=== PATIENT | male | born 1940 | race Native Hawaiian/Other Pacific Islander ===

== ENCOUNTER 2017-12-10 09:39 | Inpatient (IN) ==
--- NOTE | 2017-12-10 10:06 | ED ---
HPI General Chief complaint: Weakness Stated complaint: Weakness Time Seen by Provider: 12/10/17 09:42 Source: patient Mode of arrival: ambulatory Limitations: no limitations History of Present Illness HPI Narrative: Patient was sent from assisted living by Dr. HUMPHREY for increased lower extremity weakness and inability to ambulate. They had been trying to monitor patient outpatient until they got clearance from for lumbar spine surgery. MRI of lumbar spine shows severe spinal stenosis, Dr. Merritt would like to do surgery emergently tomorrow morning. MD Complaint: Reports tingling Onset (ago): week(s) (2) Duration: progressively worsening Location: Reports LLE and RLE Migration: Reports distal Severity: severe Relieving factors: none Exacerbating factors: none Related Data Home Medications Medication Instructions Recorded Confirmed amiodarone 200 mg PO DAILY 12/10/17 12/10/17 atorvastatin 20 mg PO DAILY 12/10/17 12/10/17 budesonide-formoterol [Symbicort] 2 puff INHALATION BID 12/10/17 12/10/17 bumetanide 0.5 mg PO DAILY 12/10/17 12/10/17 insulin lispro [Humalog KwikPen 20 unit SUBCUT BID 12/10/17 12/10/17 Insulin] melatonin 3 mg PO HS PRN 12/10/17 12/10/17 metformin 500 mg PO BID 12/10/17 12/10/17 metoprolol tartrate 50 mg PO BID 12/10/17 12/10/17 mirtazapine 15 mg PO DAILY 12/10/17 12/10/17 nitroglycerin [Nitrostat] 0.4 mg SUBLINGUAL Q5-15M PRN 12/10/17 12/10/17 omeprazole 20 mg PO DAILY 12/10/17 12/10/17 orphenadrine citrate 100 mg PO BID 12/10/17 12/10/17 oxycodone 10 mg PO Q12H 12/10/17 12/10/17 oxycodone-acetaminophen 1 tab PO Q4HR PRN 12/10/17 12/10/17 prednisone 15 mg PO DAILY 12/10/17 12/10/17 sacubitril-valsartan [Entresto] 1 tab PO BID 12/10/17 12/10/17 terbinafine HCl 1 applic TOPICAL BID 12/10/17 12/10/17 Allergies Allergy/AdvReac Type Severity Reaction Status Date / Time Sulfa (Sulfonamide Allergy Mild Burning Verified 12/10/17 09:46 Antibiotics) aspirin Allergy Bleeding Verified 12/10/17 10:22 Review of Systems ROS: all other systems reviewed are negative [facility] Medical History Medical History A-fib (Acute) CHF (congestive heart failure) (Acute) COPD (chronic obstructive pulmonary disease) (Acute) Depression (Acute) Diabetes (Acute) GERD (gastroesophageal reflux disease) (Acute) Hyperkalemia (Acute) Hyperlipemia (Acute) Hypertension (Acute) Muscle spasm (Acute) UTI (urinary tract infection) (Acute) Social History Social History Substance History: No History of Abuse Second Hand Smoke Exposure: No Smoking Status: Former smoker How Often Do You Have a Drink Containing Alcohol: Never Recent Travel in [facility] within the Last 8 Weeks: No Recent Out of Country Travel within the Last 8 Weeks: No Immunization History Tetanus Immunization: Unsure Exam HENPA Head: normocephalic and atraumatic Nose: no nasal discharge and no epistaxis Mouth: moist mucous membranes Eyes Sclera: normal sclerae Pupils: PERRL Neck Neck: trachea midline and no JVD Resp Effort & Inspection: no use of accessory muscles Auscultation: clear to auscultation bilaterally Cardio Rate: regular rate Rhythm: regular rhythm Heart Sounds: no murmurs GI Inspection: non-distended Palpation: soft, no hepatosplenomegaly and nontender Skin General: dry skin (warm) Lesions: no lesions Other: Posterior lower lumbar spine superficially shows no signs of decubitus ulcer formations. Patient's bilateral upper extremities have a group of small 1 x 2 cm circular erythematous scaly rashes Neuro General: alert and awake Cranial Nerves: other Speech: speech normal Motor: other (Or extremity weakness to movement. ) Sensory Exam: no sensory deficits noted Extrem General: normal to inspection, no clubbing, no cyanosis and no edema Psych Mood: congruent mood Affect: normal affect Judgment: judgment good Course Initial Documented Vital Signs Pulse Rate 72 12/10/17 09:50 Respiratory Rate 21 12/10/17 09:50 Blood Pressure 152/69 H 12/10/17 09:50 Pulse Oximetry 96 12/10/17 09:50 Last Documented Vital Signs Temperature 97.7 F 12/10/17 09:55 Pulse Rate 72 12/10/17 09:50 Respiratory Rate 21 12/10/17 09:50 Blood Pressure 152/69 H 12/10/17 09:50 Pulse Oximetry 96 12/10/17 09:50 Medical Decision Making REBECCA Attestation REBECCA supervised visit: Yes Attestation: The history, exam, and medical decision-making in the associated mid-level provider note were completed with my assistance. I reviewed and agree with the findings presented. I attest that I had a [id number] encounter with the patient on the same day, and personally performed and documented my assessment and findings in the medical record. *My assessment and Findings: 77-year-old male with spinal stenosis and worsening lower extremity with surgery for admission for evaluation and surgical treatment. Multiple medical comorbidities. Will need evaluation for an specialty clearance. Plan on admission to medicine. MDM Narrative Medical decision making narrative: She is being sent from assisted living facility by Dr. Merritt for progressive spinal cord compression of his lumbar spine due to severe spinal stenosis. Dr. 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 Patient's labs and chest x-ray along with EKG look normal Patient admitted to medicine Medical Screen Exam Complete: Yes Emergency Medical Condition: Yes Lab Data Lab results reviewed: Yes I reviewed the patient's lab results. Result diagrams: 12/10/17 10:12/10/17 10:04 Lab Results 12/10/17 12/10/17 12/10/17 Range/Units 10:04 10:04 10:04 WBC 9.7 (4.0-11.0) th/mm3 RBC 3.98 L (4.50-5.90) mil/mm3 Hgb 10.8 L (13.0-17.0) gm/dL Hct 33.6 L (39.0-51.0) % MCV 84.4 (80.0-100.0) fL MCH 27.0 (27.0-34.0) pg MCHC 32.0 (32.0-36.0) % RDW 22.1 H (11.6-17.2) % Plt Count 143 L (150-450) th/mm3 MPV 8.0 (7.0-11.0) fL Neut % (Auto) 68.1 (16.0-70.0) % Lymph % (Auto) 23.2 (9.0-44.0) % [place] % (Auto) 7.6 (0.0-8.0) % Eos % (Auto) 0.5 (0.0-4.0) % Baso % (Auto) 0.6 (0.0-2.0) % Neut # (Auto) 6.6 (1.8-7.7) th/mm3 Lymph # (Auto) 2.2 (1.0-4.8) th/mm3 [place] # (Auto) 0.7 (0.0-0.9) th/mm3 Eos # (Auto) 0.0 (0.0-0.4) th/mm3 Baso # (Auto) 0.1 (0.0-0.2) th/mm3 WBC Differential . Differential Comment Auto diff final PT 9.5 L (9.8-11.6) sec INR 0.9 Ratio APTT (24.3-30.1) sec Sodium 135 L (136-145) meq/L Potassium 4.5 (3.5-5.1) meq/L Chloride 95 L (98-107) meq/L Carbon Dioxide 31.4 (21.0-32.0) meq/L Anion Gap 9 (5-15) meq/L BUN 39 H (7-18) mg/dL Creatinine 1.02 (0.60-1.30) mg/dL Estimated GFR 71 L (>89) mL/min Random Glucose 217 H (74-106) mg/dL Calcium 8.4 L (8.5-10.1) mg/dL Total Bilirubin 0.3 (0.2-1.0) mg/dL AST 45 H (15-37) U/L ALT 53 (12-78) U/L Alkaline Phosphatase 113 (45-117) U/L Total Protein 6.0 L (6.4-8.2) g/dL Albumin 2.6 L (3.4-5.0) g/dL 12/10/18 Range/Units 10:04 WBC (4.0-11.0) th/mm3 RBC (4.50-5.90) mil/mm3 Hgb (13.0-17.0) gm/dL Hct (39.0-51.0) % MCV (80.0-100.0) fL MCH (27.0-34.0) pg MCHC (32.0-36.0) % RDW (11.6-17.2) % Plt Count (150-450) th/mm3 MPV (7.0-11.0) fL Neut % (Auto) (16.0-70.0) % Lymph % (Auto) (9.0-44.0) % [place] % (Auto) (0.0-8.0) % Eos % (Auto) (0.0-4.0) % Baso % (Auto) (0.0-2.0) % Neut # (Auto) (1.8-7.7) th/mm3 Lymph # (Auto) (1.0-4.8) th/mm3 [place] # (Auto) (0.0-0.9) th/mm3 Eos # (Auto) (0.0-0.4) th/mm3 Baso # (Auto) (0.0-0.2) th/mm3 WBC Differential Differential Comment PT (9.8-11.6) sec INR Ratio APTT 18.6 L (24.3-30.1) sec Sodium (136-145) meq/L Potassium (3.5-5.1) meq/L Chloride (98-107) meq/L Carbon Dioxide (21.0-32.0) meq/L Anion Gap (5-15) meq/L BUN (7-18) mg/dL Creatinine (0.60-1.30) mg/dL Estimated GFR (>89) mL/min Random Glucose (74-106) mg/dL Calcium (8.5-10.1) mg/dL Total Bilirubin (0.2-1.0) mg/dL AST (15-37) U/L ALT (12-78) U/L Alkaline Phosphatase (45-117) U/L Total Protein (6.4-8.2) g/dL Albumin (3.4-5.0) g/dL Imaging Data Attestation: I personally reviewed and interpreted this imaging study as follows : Radiologist's impression: Chest X-Ray 10/30/18 09:54 CONCLUSION: Minimal bibasilar subsegmental atelectasis. No infiltrate. ECG Data EKG Prior to Arrival: No Attestation: I personally reviewed and interpreted this ECG as follows: ( Regular rate and rhythm with no ST changes rate 70 bpm) Discharge Plan Discharge Disposition Patient Disposition: 30 Still Patient Discharge Condition Condition: Stable Discharge Details Diagnosis: Spinal stenosis of lumbar region, Unable to ambulate Physicians Team ED Provider: Frederic Kiser ED Midlevel Provider: Gardenia Neal Primary Care Provider: UNKNOWN, Attending Provider: Andreia Rosen Status ED Status: Admitted Patient
[2017-12-10 10:23] LABS: INR 0.9 Ratio; Prothrombin Time 9.5 sec (9.8-11.6)
--- NOTE | 2017-12-10 10:27 | XR ---
EXAM DATE: 12/10/2017 10:23 AM EDT AGE/SEX: 77 years / Male INDICATIONS: Chest pain. CLINICAL DATA: This is the patient's initial encounter. Patient reports that signs and symptoms have been present for 1 day and indicates a pain score of 0/10. MEDICAL/SURGICAL HISTORY: None. None. COMPARISON: [facility], XR CHEST PA AND LAT, 12/31/2014. . FINDINGS: A single AP view of the chest demonstrates minimal bibasilar subsegmental atelectasis without evidenc e of mass, infiltrate or effusion. The cardiomediastinal contours are unremarkable. Osseous structu res are intact. CONCLUSION: Minimal bibasilar subsegmental atelectasis. No infiltrate. Electronically signed by: Yung Jeronimo MD 12/10/2017 10:25 AM EDT
[2017-12-10 10:28] LABS: Alanine Aminotransferase 53 U/L (12-78); Albumin 2.6 g/dL (3.4-5.0); Anion Gap 9 meq/L (5-15); Aspartate Aminotransferase 45 U/L (15-37); Baso # (Auto) 0.1 th/mm3 (0.0-0.2); Baso % (Auto) 0.6 % (0.0-2.0); Blood Urea Nitrogen 39 mg/dL (7-18); Calcium 8.4 mg/dL (8.5-10.1); Carbon Dioxide 31.4 meq/L (21.0-32.0); Chloride 95 meq/L (98-107); Eos % (Auto) 0.5 % (0.0-4.0); Glomerular Filtration Rate 71 mL/min (>89); Glucose,Random 217 mg/dL (74-106); Hematocrit 33.6 % (39.0-51.0); Hemoglobin 10.8 gm/dL (13.0-17.0); Lymph # (Auto) 2.2 th/mm3 (1.0-4.8); Lymph % (Auto) 23.2 % (9.0-44.0); Mean Corpuscular Volume 84.4 fL (80.0-100.0); Mono # (Auto) 0.7 th/mm3 (0.0-0.9); Mono % (Auto) 7.6 % (0.0-8.0); Neut # (Auto) 6.6 th/mm3 (1.8-7.7); Neut % (Auto) 68.1 % (16.0-70.0); Platelet Count 143 th/mm3 (150-450); Potassium 4.5 meq/L (3.5-5.1); Red Blood Count 3.98 mil/mm3 (4.50-5.90); Red Cell Distribution Width 22.1 % (11.6-17.2); Sodium 135 meq/L (136-145); White Blood Count 9.7 th/mm3 (4.0-11.0)
[2017-12-10 10:30] LABS: Alkaline Phosphatase 113 U/L (45-117)
--- NOTE | 2017-12-10 10:41 | P.HPFP ---
History of Present Illness Primary Care Physician: UNKNOWN <Arturo Marcus - 12/10/17 17:44> UNKNOWN <SilasMariam Main 12/10/17 10:41> History of Present Illness: 77-year-old male with history of A.fib, hypertension, type 2 diabetes, COPD, CHF , rheumatoid arthritis, severe spinal stenosis sent to the ED from assisted living by for worsening lower extremity weakness and inability to ambulate. and [id number] at bedside. Most of the history provided by . Patient initially started having back pain about 3-4 months ago. Family thought it was due to arthritis. However, patient's legs started becoming weak. Reports that patient was hospitalized about 1 month ago at another hospital. MRI demonstrated severe spinal stenosis. states that they were not ready to undergo surgery at that time and wanted to try therapy. Patient was in therapy at [facility] for at least 2 weeks. Reports that patient was not improving with therapy and now would like to consider surgery. Denies incontinence, difficulty with urination/ defecation, saddle anesthesia, nausea vomiting, chest pain, shortness of breath, and abdominal pain. PMH: A.fib, COPD, HTN, T2DM, CHF, RA, PSH: Bilateral knee replacement 2004. Allergies: Aspirin induces asthma attack, sulfides FH: Mom passed at 74 from [place], Father passed 75 from lung disease secondary to smoking, 2 kids healthy. Social: Lives at [facility] never smoking, never drinker. 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 Code: Full Code PCP, Dr. Craig <Mariam Rosen 12/10/17 16:53> - Diagnosis (1) Spinal stenosis of lumbar region (2) Diabetes (3) A-fib (4) HTN (hypertension) (5) Hyperlipidemia (6) COPD (chronic obstructive pulmonary disease) (7) GERD (gastroesophageal reflux disease) (8) Nutrition, metabolism, and development symptoms <Arturo Macrus 12/10/17 17:44> (1) Spinal stenosis of lumbar region (2) Diabetes (3) A-fib (4) HTN (hypertension) (5) Hyperlipidemia (6) COPD (chronic obstructive pulmonary disease) (7) GERD (gastroesophageal reflux disease) (8) Nutrition, metabolism, and development symptoms <Mariam Rosen 12/10/17 16:54> Inpatient Certification: I certify that the inpatient services were ordered in accordance with Medicare regulations governing the order. This includes certification that hospital inpatient services are reasonable and necessary and in the case of services not specified as inpatient-only under 42 CFR 419.22(n), that they are appropriately provided as inpatient services in accordance to with the 2-midnight benchmark under 43 CFR 412.3(e) <Arturo Marcus 12/10/17 17:44> Review of Systems Constitutional: Denies fever(s), Denies weight loss <VanMaryn Main 16:40> Eyes: Denies change in vision <VanMaryn Main 12/10/17 16:40> Ears, Nose, Mouth, and Throat: Reports abnormal hearing, Denies nasal congestion , Denies sore throat <VanMaryn Main 12/10/17 16:40> Cardiovascular: Denies chest pain <VanMariam Main 12/10/17 16:40> Respiratory: Denies shortness of breath <VanMaryn Main 12/10/17 16:40> Gastrointestinal: Denies abdominal pain, Denies nausea, Denies vomiting <VanMaryn Main 12/10/17 16:40> Genitourinary: Denies difficulty urinating <VanMaryn Main 12/10/17 16:40> Musculoskeletal: Reports muscle weakness <VanMaryn Main 12/10/17 16:40> Skin/Breast: Denies rash <VanMariam Main 12/10/17 16:40> Neurologic: Reports weakness <VanMaryn Main 12/10/17 16:40> PMFSH - History History Provided By: Patient, Medical Record <Mariam Rosen Main 12/10/17 10: 41> - Medical History Medical History: Medical History (Last Reviewed 12/10/17 @ 11:41 by Corinne Alvarez) A-fib CHF (congestive heart failure) COPD (chronic obstructive pulmonary disease) Depression Diabetes GERD (gastroesophageal reflux disease) Hyperkalemia Hyperlipemia Hypertension Muscle spasm UTI (urinary tract infection) <Arturo Marcus 12/10/17 17:44> Medical History (Last Reviewed 12/10/17 @ 11:41 by Corinne Alvarez) A-fib CHF (congestive heart failure) COPD (chronic obstructive pulmonary disease) Depression Diabetes GERD (gastroesophageal reflux disease) Hyperkalemia Hyperlipemia Hypertension Muscle spasm UTI (urinary tract infection) <Mariam Rosen T - 12/10/17 14:27> - Surgical History Surgical History: Surgical History (Last Updated 12/10/17 @ 16:39 by Mariam Rosen MD, R2) History of bilateral knee replacement <Arturo Marcus - 12/10/17 17:44> Surgical History (Last Updated 12/10/17 @ 16:39 by Mariam Rosen MD, R2) History of bilateral knee replacement <Mariam Rosen - 12/10/17 16:40> - Family History Family History: Family History (Last Updated 12/10/17 @ 16:39 by Mariam Rosen MD, R2) Mother Heart attack <Arturo Marcus - 12/10/17 17:44> Family History (Last Updated 12/10/17 @ 16:39 by Mariam Rosen MD, R2) Mother Heart attack <Mariam Rosen - 12/10/17 16:40> - Social History I have reviewed the patient's Social History: Yes <Mariam Rosen - 16:40> - Tobacco History Second Hand Smoke Exposure: No <Mariam Rosen - 12/10/17 10:41> Tobacco Use In Past 30 Days: No <Mariam Rosen T - 12/10/17 10:41> Smoking Status: Never smoker <Mariam Rosen T - 12/10/17 16:40> - Alcohol History How Often Do You Have a Drink Containing Alcohol: Never <Mariam Rosen T - 10:41> - Substance Use History Substance History: No History of Abuse <Mariam Rosen - 12/10/17 10:41> - Travel History Recent Travel in the [facility] Within the Last 8 Weeks: No <Mariam Rosen - 12/10 10:41> Recent Travel Out of the Country Within the Last 8 Weeks: No <Mariam Rosen - 12/10/17 10:41> - Immunization History Tetanus Immunization: Unsure <SilasMariam Etelvina T - 12/10/17 10:41> Medications and Allergies Allergies Allergy/AdvReac Type Severity Reaction Status Date / Time Sulfa (Sulfonamide Allergy Mild Burning Verified 12/10/17 09:46 Antibiotics) aspirin Allergy Bleeding Verified 12/10/17 10:22 <Arturo Marcus - 12/10/17 17:44> Home Medications Medication Instructions Recorded Confirmed Type amiodarone 200 mg PO DAILY 12/10/17 12/10/17 History atorvastatin 20 mg PO DAILY 12/10/17 12/10/17 History budesonide-formoterol [Symbicort] 2 puff INHALATION BID 12/10/17 12/10/17 History bumetanide 0.5 mg PO DAILY 12/10/17 12/10/17 History insulin lispro [Humalog KwikPen 20 unit SUBCUT BID 12/10/17 12/10/17 History Insulin] melatonin 3 mg PO HS PRN 12/10/17 12/10/17 History metformin 500 mg PO BID 12/10/17 12/10/17 History metoprolol tartrate 50 mg PO BID 12/10/17 12/10/17 History mirtazapine 15 mg PO DAILY 12/10/17 12/10/17 History nitroglycerin [Nitrostat] 0.4 mg SUBLINGUAL Q5-15M PRN 12/10/17 12/10/17 History omeprazole 20 mg PO DAILY 12/10/17 12/10/17 History orphenadrine citrate 100 mg PO BID 12/10/17 12/10/17 History oxycodone 10 mg PO Q12H 12/10/17 12/10/17 History oxycodone-acetaminophen 1 tab PO Q4HR PRN 12/10/17 12/10/17 History prednisone 15 mg PO DAILY 12/10/17 12/10/17 History sacubitril-valsartan [Entresto] 1 tab PO BID 12/10/17 12/10/17 History terbinafine HCl 1 applic TOPICAL BID 12/10/17 12/10/17 History <Arturo Marcus - 12/10/17 17:44> Active Medications: Active Medications Amiodarone HCl (Cordarone) 200 mg PO DAILY [facility] Atorvastatin Calcium (Lipitor) 20 mg PO DAILY [facility] Budesonide/Formoterol Fumarate (Symbicort 80/4.5 Mcg Inh) 2 puff INH BID [facility] Bumetanide (Bumex) 0.5 mg PO DAILY [facility] Dextrose (D50w Vial) 50 ml IV.PUSH UNSCH PRN PRN Reason: PER HYPOGLYCEMIA PROTOCOL Glucagon (Glucagon Inj) 1 mg OTHER PRN PRN PRN Reason: for Hypoglycemia Protocol Insulin Aspart (Novolog Insulin Correctional Sugar Inj) 0 unit SQ ACHS [facility]; Protocol Last Admin: 12/10/17 17:15 Dose: 3 unit Melatonin (Melatonin) 5 mg PO HS PRN PRN Reason: INSOMNIA Metoprolol Tartrate (Lopressor) 50 mg PO BID [facility] Mirtazapine (Remeron) 15 mg PO DAILY [facility] Nitroglycerin (Nitrostat Sl (Override)) 0.4 mg SL Q5M PRN PRN Reason: Chest Pain Orphenadrine Citrate (Norflex Cr) 100 mg PO BID [facility] Oxycodone HCl (Oxycontin Cr) 10 mg PO Q12H [facility] Oxycodone/Acetaminophen (Percocet 5/325 Mg) 1 tab PO Q4HR PRN PRN Reason: PAIN 1-10 Last Admin: 12/10/17 17:14 Dose: 1 tab Pantoprazole Sodium (Protonix) 20 mg PO DAILY [facility] Patient Own Medicationterbinafin e Hcl [Terbinafine Hcl] 1%Cream 0 each TOPICAL BID [facility] Prednisone (Deltasone) 15 mg PO DAILY [facility] Sacubitril/Valsartan (Entresto 24 Mg/26 Mg Tablet) 1 tab PO BID [facility] <Arturo Marcus L - 12/10/17 17:44> Exam Vital signs: Vital Signs 12/10/17 09:50 12/10/17 09:55 12/10/17 12:00 Temperature 97.7 F 98.3 F Pulse Rate 72 63 Respiratory Rate 21 18 Blood Pressure 152/69 H 145/69 H Pulse Oximetry 96 99 12/10/17 16:45 Temperature Pulse Rate Respiratory Rate Blood Pressure Pulse Oximetry 95 Intake & Output 12/09/17 12/10/17 12/10/17 18:59 06:59 18:59 Intake Total 240 / 240 Balance 240 / 240 Weight 60 kg Intake: Oral 240 / 240 Other: Date of Last Bowel Movement 12/10/17 Weight On Admission 60 kg <Arturo Marcus L - 12/10/17 17:44> Vital Signs 12/10/17 09:50 12/10/17 09:55 Temperature 97.7 F Pulse Rate 72 Respiratory Rate 21 Blood Pressure 152/69 H Pulse Oximetry 96 Intake & Output 12/09/17 12/10/17 12/10/17 18:59 06:59 18:59 Weight 60.781 kg <Aayush Rosenyen Main T - 12/10/17 10:41> Narrative: General: In no acute distress HEENT: PERRLA, EOMI, throat clear, no lymphadenopathy Cardio: Regular rate and rhythm, no murmurs rubs or gallops Pulmonary: Clear to auscultation bilaterally, no wheezes or crackles Abdomen: Soft, nontender, nondistended, positive bowel sounds, no rebound, no guarding Extremities: 2 out of 5 strength in lower extremities, 2+ pedal pulses, sensation intact, 1+ pitting edema bilaterally Neuro: Alert and oriented x3 <Mariam Rosen T - 12/10/17 16:53> Results - Labs Result diagrams: 12/10/17 10:04 12/10/17 10:04 <Arturo Marcus L - 12/10/17 17:44> Abnormal lab results 12/10/17 12/10/17 12/10/17 Range/Units 10:04 10:04 10:04 RBC 3.98 L (4.50-5.90) mil/mm3 Hgb 10.8 L (13.0-17.0) gm/dL Hct 33.6 L (39.0-51.0) % RDW 22.1 H (11.6-17.2) % Plt Count 143 L (150-450) th/mm3 PT 9.5 L (9.8-11.6) sec APTT (24.3-30.1) sec Sodium 135 L (136-145) meq/L Chloride 95 L (98-107) meq/L BUN 39 H (7-18) mg/dL Estimated GFR 71 L (>89) mL/min POC Glucose (68-110) mg/dl Random Glucose 217 H (74-106) mg/dL Calcium 8.4 L (8.5-10.1) mg/dL AST 45 H (15-37) U/L Total Protein 6.0 L (6.4-8.2) g/dL Albumin 2.6 L (3.4-5.0) g/dL 12/10/17 12/10/17 Range/Units 10:04 16:59 RBC (4.50-5.90) mil/mm3 Hgb (13.0-17.0) gm/dL Hct (39.0-51.0) % RDW (11.6-17.2) % Plt Count (150-450) th/mm3 PT (9.8-11.6) sec APTT 18.6 L (24.3-30.1) sec Sodium (136-145) meq/L Chloride (98-107) meq/L BUN (7-18) mg/dL Estimated GFR (>89) mL/min POC Glucose 245 H (68-110) mg/dl Random Glucose (74-106) mg/dL Calcium (8.5-10.1) mg/dL AST (15-37) U/L Total Protein (6.4-8.2) g/dL Albumin (3.4-5.0) g/dL Short CBC 12/10/17 Range/Units 10:04 WBC 9.7 (4.0-11.0) th/mm3 Hgb 10.8 L (13.0-17.0) gm/dL Hct 33.6 L (39.0-51.0) % Plt Count 143 L (150-450) th/mm3 BMP 12/10/17 10:04 Sodium 135 L Potassium 4.5 Chloride 95 L Carbon Dioxide 31.4 BUN 39 H Creatinine 1.02 Calcium 8.4 L Liver Function 12/10/17 Range/Units 10:04 Total Bilirubin 0.3 (0.2-1.0) mg/dL AST 45 H (15-37) U/L ALT 53 (12-78) U/L Alkaline Phosphatase 113 (45-117) U/L Albumin 2.6 L (3.4-5.0) g/dL <Young,Arturo L - 12/10/17 17:44> Abnormal lab results 12/10/17 12/10/17 12/10/17 Range/Units 10:04 10:04 10:04 RBC 3.98 L (4.50-5.90) mil/mm3 Hgb 10.8 L (13.0-17.0) gm/dL Hct 33.6 L (39.0-51.0) % RDW 22.1 H (11.6-17.2) % Plt Count 143 L (150-450) th/mm3 PT 9.5 L (9.8-11.6) sec APTT (24.3-30.1) sec Sodium 135 L (136-145) meq/L Chloride 95 L (98-107) meq/L BUN 39 H (7-18) mg/dL Estimated GFR 71 L (>89) mL/min Random Glucose 217 H (74-106) mg/dL Calcium 8.4 L (8.5-10.1) mg/dL AST 45 H (15-37) U/L Total Protein 6.0 L (6.4-8.2) g/dL Albumin 2.6 L (3.4-5.0) g/dL 12/10/17 Range/Units 10:04 RBC (4.50-5.90) mil/mm3 Hgb (13.0-17.0) gm/dL Hct (39.0-51.0) % RDW (11.6-17.2) % Plt Count (150-450) th/mm3 PT (9.8-11.6) sec APTT 18.6 L (24.3-30.1) sec Sodium (136-145) meq/L Chloride (98-107) meq/L BUN (7-18) mg/dL Estimated GFR (>89) mL/min Random Glucose (74-106) mg/dL Calcium (8.5-10.1) mg/dL AST (15-37) U/L Total Protein (6.4-8.2) g/dL Albumin (3.4-5.0) g/dL Short CBC 12/10/17 Range/Units 10:04 WBC 9.7 (4.0-11.0) th/mm3 Hgb 10.8 L (13.0-17.0) gm/dL Hct 33.6 L (39.0-51.0) % Plt Count 143 L (150-450) th/mm3 BMP 12/10/17 10:04 Sodium 135 L Potassium 4.5 Chloride 95 L Carbon Dioxide 31.4 BUN 39 H Creatinine 1.02 Calcium 8.4 L Liver Function 12/10/17 Range/Units 10:04 Total Bilirubin 0.3 (0.2-1.0) mg/dL AST 45 H (15-37) U/L ALT 53 (12-78) U/L Alkaline Phosphatase 113 (45-117) U/L Albumin 2.6 L (3.4-5.0) g/dL <Mariam Rosen T - 12/10/17 10:41> - Imaging Impressions Chest X-Ray 12/10/17 09:54 CONCLUSION: Minimal bibasilar subsegmental atelectasis. No infiltrate. <Arturo Marcus - 12/10/17 17:44> Impressions Chest X-Ray 12/10/17 09:54 CONCLUSION: Minimal bibasilar subsegmental atelectasis. No infiltrate. <Mariam Rosen - 12/10/17 10:41> Caprini VTE Risk Assessment Caprini VTE Risk Assessment: Moderate/High Risk (score >= 2) <Mariam Rosen - 12/10/17 16:53> Caprini Risk Assessment Model: Point Value = 1 Point Value = 2 Point Value = 3 Point Value = 5 Age 41-60 Minor surgery BMI > 25 kg/m2 Swollen legs Varicose veins or History of unexplained or recurrent spontaneous Oral contraceptives or hormone replacement Sepsis (< 1 month) Serious lung disease, including pneumonia (< 1 month) Abnormal pulmonary function Acute myocardial infarction Congestive heart failure (< 1 month) History of inflammatory bowel disease Medical patient at bed rest Age 61-74 Arthroscopic surgery Major open surgery (> 45 min) Laparoscopic surgery (> 45 min) Malignancy Confined to bed (> 72 hours) Immobilizing plaster cast Central venous access Age >= 75 History of VTE Family history of VTE Factor V Leiden Prothrombin [id number] Lupus anticoagulant Anticardiolipin antibodies Elevated serum homocysteine Heparin-induced thrombocytopenia Other congenital or acquired thrombophilia Stroke (< 1 month) Elective arthroplasty Hip, pelvis, or leg fracture Acute spinal cord injury (< 1 month) <Arturo Marcus 12/10/17 17:44> Point Value = 1 Point Value = 2 Point Value = 3 Point Value = 5 Age 41-60 Minor surgery BMI > 25 kg/m2 Swollen legs Varicose veins or History of unexplained or recurrent spontaneous Oral contraceptives or hormone replacement Sepsis (< 1 month) Serious lung disease, including pneumonia (< 1 month) Abnormal pulmonary function Acute myocardial infarction Congestive heart failure (< 1 month) History of inflammatory bowel disease Medical patient at bed rest Age 61-74 Arthroscopic surgery Major open surgery (> 45 min) Laparoscopic surgery (> 45 min) Malignancy Confined to bed (> 72 hours) Immobilizing plaster cast Central venous access Age >= 75 History of VTE Family history of VTE Factor V Leiden Prothrombin [id number] Lupus anticoagulant Anticardiolipin antibodies Elevated serum homocysteine Heparin-induced thrombocytopenia Other congenital or acquired thrombophilia Stroke (< 1 month) Elective arthroplasty Hip, pelvis, or leg fracture Acute spinal cord injury (< 1 month) <Mariam Rosen T - 12/10/17 10:41> Prophylaxis Regimen: Total Risk Factor Score Risk Level Prophylaxis Regimen 0-1 Low Early ambulation 2 Moderate Order ONE of the following: *Sequential Compression Device (SCD) *Heparin 5000 units SQ BID 3-4 Higher Order ONE of the following medications: *Heparin 5000 units SQ TID *Enoxaparin/Lovenox 40 mg SQ daily (WT < 150 kg, CrCl > 30 mL/min) *Enoxaparin/Lovenox 30 mg SQ daily (WT < 150 kg, CrCl > 10-29 mL/min) *Enoxaparin/Lovenox 30 mg SQ BID (WT < 150 kg, CrCl > 30 mL/min) AND/OR *Sequential Compression Device (SCD) 5 or more Highest Order ONE of the following medications: *Heparin 5000 units SQ TID (Preferred with Epidurals) *Enoxaparin/Lovenox 40 mg SQ daily (WT < 150 kg, CrCl > 30 mL/min) *Enoxaparin/Lovenox 30 mg SQ daily (WT < 150 kg, CrCl > 10-29 mL/min) *Enoxaparin/Lovenox 30 mg SQ BID (WT < 150 kg, CrCl > 30 mL/min) AND *Sequential Compression Device (SCD) <Arturo Marcus - 12/10/17 17:44> Total Risk Factor Score Risk Level Prophylaxis Regimen 0-1 Low Early ambulation 2 Moderate Order ONE of the following: *Sequential Compression Device (SCD) *Heparin 5000 units SQ BID 3-4 Higher Order ONE of the following medications: *Heparin 5000 units SQ TID *Enoxaparin/Lovenox 40 mg SQ daily (WT < 150 kg, CrCl > 30 mL/min) *Enoxaparin/Lovenox 30 mg SQ daily (WT < 150 kg, CrCl > 10-29 mL/min) *Enoxaparin/Lovenox 30 mg SQ BID (WT < 150 kg, CrCl > 30 mL/min) AND/OR *Sequential Compression Device (SCD) 5 or more Highest Order ONE of the following medications: *Heparin 5000 units SQ TID (Preferred with Epidurals) *Enoxaparin/Lovenox 40 mg SQ daily (WT < 150 kg, CrCl > 30 mL/min) *Enoxaparin/Lovenox 30 mg SQ daily (WT < 150 kg, CrCl > 10-29 mL/min) *Enoxaparin/Lovenox 30 mg SQ BID (WT < 150 kg, CrCl > 30 mL/min) AND *Sequential Compression Device (SCD) <Mariam Rosen T - 12/10/17 10:41> Assessment and Plan - Assessment (1) Spinal stenosis of lumbar region Code(s): M48.061 - Spinal stenosis, lumbar region without neurogenic claudication Status: Chronic (2) Diabetes Code(s): E11.9 - Type 2 diabetes mellitus without complications Status: Acute (3) A-fib Code(s): I48.91 - Unspecified atrial fibrillation Status: Acute (4) HTN (hypertension) Code(s): I10 - Essential (primary) hypertension Status: Acute (5) Hyperlipidemia Code(s): E78.5 - Hyperlipidemia, unspecified Status: Acute (6) COPD (chronic obstructive pulmonary disease) Code(s): J44.9 - Chronic obstructive pulmonary disease, unspecified Status: Acute (7) GERD (gastroesophageal reflux disease) Code(s): K21.9 - Gastro-esophageal reflux disease without esophagitis Status: Acute (8) Nutrition, metabolism, and development symptoms Code(s): R63.8 - Other symptoms and signs concerning food and fluid intake Status: Acute <Arturo Marcus - 12/10/17 17:44> (1) Spinal stenosis of lumbar region Code(s): M48.061 - Spinal stenosis, lumbar region without neurogenic claudication Status: Acute Plan: 77-year-old male with history of A.fib, hypertension, type 2 diabetes, COPD, CHF , rheumatoid arthritis, severe spinal stenosis sent to the ED from assisted living by for worsening lower extremity weakness and inability to ambulate. -Neurosurgery consulted -Cardio and pulmonology consulted for surgery clearance -N.p.o. after midnight -Lovenox once -Surgery tomorrow (2) Diabetes Code(s): E11.9 - Type 2 diabetes mellitus without complications Status: Acute Plan: Held home metformin and Humalog Accu-Cheks Hypoglycemia protocol in place Low-dose sliding scale (3) A-fib Code(s): I48.91 - Unspecified atrial fibrillation Status: Acute Plan: Continue home amiodarone 200 mg daily and metoprolol Patient is not on anticoagulant at home (4) HTN (hypertension) Code(s): I10 - Essential (primary) hypertension Status: Acute Plan: Continue home Entresto (5) Hyperlipidemia Code(s): E78.5 - Hyperlipidemia, unspecified Status: Acute Plan: Continue home atorvastatin (6) COPD (chronic obstructive pulmonary disease) Code(s): J44.9 - Chronic obstructive pulmonary disease, unspecified Status: Acute Plan: Continue home Symbicort and prednisone (7) GERD (gastroesophageal reflux disease) Code(s): K21.9 - Gastro-esophageal reflux disease without esophagitis Status: Acute Plan: Continue home omeprazole (8) Nutrition, metabolism, and development symptoms Code(s): R63.8 - Other symptoms and signs concerning food and fluid intake Status: Acute Plan: Fluids: not indicated Diet: Diabetic diet, NPO after midnight for surgery tomorrow vitals q4h, cardiac telemetry, monitor I & Os DVT ppx: Lovenox ONCE, SCDs <Mariam Rosen T - 12/10/17 16:54> - Attending Attestation The exam, history, and the medical decision-making described in the above note were completed with the assistance of the resident physician. I reviewed and agree with the findings presented. I attest that I had a [id number] encounter with the patient on the same day, and personally performed and documented my assessment and findings in the medical record. Discussed and evaluated patient with resident team. Patient with a history of atrial fibrillation, COPD, CHF, presenting to the hospital for severe spinal stenosis with hopes of receiving surgical correction. Cardiology and pulmonology consulted to help assess cardiopulmonary risk factors before proceeding with surgery. Obtaining EKG/ECHO as part of assessment. Neurosurgery consulted, Dr. Shaina gross. <Arturo Marcus - 12/10/17 17:44> <Mariam Rosen T - Last Filed: 12/10/17 16:54> (1) Spinal stenosis of lumbar region Qualifiers: Neurogenic claudication status: unspecified Qualified Code(s): M48.061 - Spinal stenosis, lumbar region without neurogenic claudication <Arturo Marcus - Last Filed: 12/10/17 17:44> (1) Spinal stenosis of lumbar region Qualifiers: Neurogenic claudication status: with neurogenic claudication Qualified Code(s ): M48.062 - Spinal stenosis, lumbar region with neurogenic claudication <Mariam Rosen - Last Filed: 12/10/17 16:54> (1) Spinal stenosis of lumbar region Qualifiers: Neurogenic claudication status: unspecified Qualified Code(s): M48.061 - Spinal stenosis, lumbar region without neurogenic claudication <Arturo Marcus - Last Filed: 12/10/17 17:44> (1) Spinal stenosis of lumbar region Qualifiers: Neurogenic claudication status: with neurogenic claudication Qualified Code(s ): M48.062 - Spinal stenosis, lumbar region with neurogenic claudication
[2017-12-10] MEDS ORDERED: Dextrose 50% in Water 50 ML Vial IV.PUSH PRN (11:20)
[2017-12-10] MEDS ORDERED: Nitroglycerin SL (Override) 0.4 MG Tab SL PRN (11:34)
[2017-12-10] MEDS ORDERED: Enoxaparin Inj 40 MG/0.4 ML Syringe SQ ONE ×3 (12:00→14:00)
[2017-12-10] MEDS: Insulin NovoLOG Aspart Correctional Sugar Inj SQ SCH ×3 (13:35→21:27)
--- NOTE | 2017-12-10 15:06 | ECG ---
Date Performed: 12/10/2017 Time Performed: 10:04:17 PTAGE: 77 years EKG: Sinus rhythm INTRAVENTRICULAR CONDUCTION DELAY Since the previous tracing, no significant change noted ABNORMAL E CG PREVIOUS TRACING : 09/27/2004 08.36 DOCTOR: Micheal Valdovinos Interpretating Date/Time 12/10/2017 14:54:18
--- NOTE | 2017-12-10 16:32 | P.CONCA ---
History of Present Illness Service: Cardiology Consult date: 12/10/17 Requesting Physician: Mariam Rosen Reason for Consult: Cardiac clearance for spinal surgery Primary Care Provider: UNKNOWN History of Present Illness: This is a 77-year-old male known to Dr. Leyva with a past medical history of hypertension, diabetes, lung disease, venous stasis syndrome, chronic anemia, hyperlipidemia, COPD, hyperkalemia and sepsis. Patient was sent from rehab with increased weakness and inability ambulate. Patient has a history of spinal stenosis and was attempting rehab to strengthen his back in attempts to avoid spinal surgery. He states that he has lost all strength in his lower extremities at this time. He denies any bowel or bladder incontinence. On November 12, 2017 had a 2D echo which showed an EF of 40-45%, diastolic dysfunction, mildly dilated left atrium, mild mitral regurgitation and mild tricuspid regurgitation . Currently, he denies any chest pain, pressure, palpitations, dizziness, edema or shortness of breath. He only complains of lower extremity weakness and inability to ambulate. Review of Systems All other systems reviewed negative except as stated in HPI PMFSH - History History Provided By: Patient - Medical History Medical History: Medical History (Last Reviewed 12/10/17 @ 17:11 by Enio Merritt MD) A-fib CHF (congestive heart failure) COPD (chronic obstructive pulmonary disease) Depression Diabetes GERD (gastroesophageal reflux disease) Hyperkalemia Hyperlipemia Hypertension Muscle spasm UTI (urinary tract infection) - Tobacco History Second Hand Smoke Exposure: No Tobacco Use In Past 30 Days: No Smoking Status: Never smoker - Alcohol History How Often Do You Have a Drink Containing Alcohol: Never - Substance Use History Substance History: No History of Abuse - Travel History Recent Travel in the [place] Within the Last 8 Weeks: No Recent Travel Out of the Country Within the Last 8 Weeks: No - Immunization History Tetanus Immunization: >5 Years Hx Influenza Vaccine This Season: No Medications and Allergies Allergies Allergy/AdvReac Type Severity Reaction Status Date / Time Sulfa (Sulfonamide Allergy Mild Burning Verified 12/10/17 09:46 Antibiotics) aspirin Allergy Bleeding Verified 12/10/17 10:22 Home Medications Medication Instructions Recorded Confirmed Type amiodarone 200 mg PO DAILY 12/10/17 12/10/17 History atorvastatin 20 mg PO DAILY 12/10/17 12/10/17 History budesonide-formoterol [Symbicort] 2 puff INHALATION BID 12/10/17 12/10/17 History bumetanide 0.5 mg PO DAILY 12/10/17 12/10/17 History insulin lispro [Humalog KwikPen 20 unit SUBCUT BID 12/10/17 12/10/17 History Insulin] melatonin 3 mg PO HS PRN 12/10/17 12/10/17 History metformin 500 mg PO BID 12/10/17 12/10/17 History metoprolol tartrate 50 mg PO BID 12/10/17 12/10/17 History mirtazapine 15 mg PO DAILY 12/10/17 12/10/17 History nitroglycerin [Nitrostat] 0.4 mg SUBLINGUAL Q5-15M PRN 12/10/17 12/10/17 History omeprazole 20 mg PO DAILY 12/10/17 12/10/17 History orphenadrine citrate 100 mg PO BID 12/10/17 12/10/17 History oxycodone 10 mg PO Q12H 12/10/17 12/10/17 History oxycodone-acetaminophen 1 tab PO Q4HR PRN 12/10/17 12/10/17 History prednisone 15 mg PO DAILY 12/10/17 12/10/17 History sacubitril-valsartan [Entresto] 1 tab PO BID 12/10/17 12/10/17 History terbinafine HCl 1 applic TOPICAL BID 12/10/17 12/10/17 History Active Medications: Active Medications Amiodarone HCl (Cordarone) 200 mg PO DAILY [facility] Atorvastatin Calcium (Lipitor) 20 mg PO DAILY [facility] Budesonide/Formoterol Fumarate (Symbicort 80/4.5 Mcg Inh) 2 puff INH BID [facility] Bumetanide (Bumex) 0.5 mg PO DAILY [facility] Dextrose (D50w Vial) 50 ml IV.PUSH UNSCH PRN PRN Reason: PER HYPOGLYCEMIA PROTOCOL Glucagon (Glucagon Inj) 1 mg OTHER PRN PRN PRN Reason: for Hypoglycemia Protocol Influenza Virus Vaccine (Fluarix (Quad) Vaccine Inj) 0.5 ml IM .ONCE ONE Stop: 12/10/17 17:01 Insulin Aspart (Novolog Insulin Correctional Sugar Inj) 0 unit SQ ACHS [facility]; Protocol Last Admin: 12/10/17 13:35 Dose: Not Given Melatonin (Melatonin) 5 mg PO HS PRN PRN Reason: INSOMNIA Metoprolol Tartrate (Lopressor) 50 mg PO BID [facility] Mirtazapine (Remeron) 15 mg PO DAILY [facility] Nitroglycerin (Nitrostat Sl (Override)) 0.4 mg SL Q5M PRN PRN Reason: Chest Pain Orphenadrine Citrate (Norflex Cr) 100 mg PO BID [facility] Oxycodone HCl (Oxycontin Cr) 10 mg PO Q12H [facility] Oxycodone/Acetaminophen (Percocet 5/325 Mg) 1 tab PO Q4HR PRN PRN Reason: PAIN 1-10 Pantoprazole Sodium (Protonix) 20 mg PO DAILY [facility] Patient Own Medicationterbinafin e Hcl [Terbinafine Hcl] 1%Cream 0 each TOPICAL BID [facility] Prednisone (Deltasone) 15 mg PO DAILY [facility] Sacubitril/Valsartan (Entresto 24 Mg/26 Mg Tablet) 1 tab PO BID [facility] Exam Vital signs: Vital Signs 12/10/17 09:50 12/10/17 09:55 12/10/17 12:00 Temperature 97.7 F 98.3 F Pulse Rate 72 63 Respiratory Rate 21 18 Blood Pressure 152/69 H 145/69 H Pulse Oximetry 96 99 Intake & Output 12/09/17 12/10/17 12/10/17 18:59 06:59 18:59 Intake Total 240 / 240 Balance 240 / 240 Weight 60 kg Intake: Oral 240 / 240 Other: Weight On Admission 60 kg - Constitutional no acute distress - Routine HEENT Exam Head: Present: normocephalic Eye: Present: PERRL ENT: Present: mucous membranes moist - Routine Neck Exam Present: full ROM - Routine Respiratory Exam Present: CTA bilaterally - Routine Cardiovascular Exam Present: S1, S2, murmur. Absent: gallop, rubs - Routine Abdominal Exam Present: normoactive bowel sounds - Routine Extremities Exam Present: pulses intact, normal capillary refill. Absent: cyanosis, clubbing, edema Comments: Inability to raise legs due to severe spinal stenosis pending spinal surgery tomorrow - Routine Skin Exam Present: intact. Absent: cyanosis - Routine Neurological Exam Present: oriented X3 Results 12/10/17 10:04 12/10/17 10:04 Cardiac Enzymes 12/10/17 Range/Units 10:04 AST 45 H (15-37) U/L Coagulation 12/10/17 12/10/17 Range/Units 10:04 10:04 PT 9.5 L (9.8-11.6) sec APTT 18.6 L (24.3-30.1) sec CBC 12/10/17 Range/Units 10:04 WBC 9.7 (4.0-11.0) th/mm3 RBC 3.98 L (4.50-5.90) mil/mm3 Hgb 10.8 L (13.0-17.0) gm/dL Hct 33.6 L (39.0-51.0) % Plt Count 143 L (150-450) th/mm3 Neut # (Auto) 6.6 (1.8-7.7) th/mm3 Lymph # (Auto) 2.2 (1.0-4.8) th/mm3 Parke # (Auto) 0.7 (0.0-0.9) th/mm3 Eos # (Auto) 0.0 (0.0-0.4) th/mm3 Baso # (Auto) 0.1 (0.0-0.2) th/mm3 Comprehensive Metabolic Panel 12/10/17 Range/Units 10:04 Sodium 135 L (136-145) meq/L Potassium 4.5 (3.5-5.1) meq/L Chloride 95 L (98-107) meq/L Carbon Dioxide 31.4 (21.0-32.0) meq/L BUN 39 H (7-18) mg/dL Creatinine 1.02 (0.60-1.30) mg/dL Calcium 8.4 L (8.5-10.1) mg/dL AST 45 H (15-37) U/L ALT 53 (12-78) U/L Alkaline Phosphatase 113 (45-117) U/L Total Protein 6.0 L (6.4-8.2) g/dL Albumin 2.6 L (3.4-5.0) g/dL Intake and Output 12/10/17 12/10/17 12/10/17 06:59 14:59 22:59 Intake Total 240 / 240 Balance 240 / 240 Intake: Oral 240 / 240 Other: Weight 60.781 kg 60 kg Weight On Admission 60 kg Patient Weight 12/11/17 06:59 Weight 60 kg - Imaging and Cardiology Imaging: Impressions Chest X-Ray 12/10/17 09:54 CONCLUSION: Minimal bibasilar subsegmental atelectasis. No infiltrate. Assessment and Plan - Plan Severe spinal stenosis Hypertension Diabetes COPD Venous stasis syndrome Hyperlipidemia Patient does not appear to be in any acute distress at this time. No evidence of angina or CHF exacerbation. Patient was cleared by Dr. Leyva for surgery from a cardiac standpoint on November 13, 2017. The patient is cleared from cardiac standpoint for surgery at this time. His risk of cardiac perioperative complications is increased, but not prohibitive. Proceed with the surgery as planned. The patient was seen and evaluated by Dr. Holder who participated in care, management and decision-making. - Attending Attestation Patient seen and examined. I reviewed and agree with the evaluation and plan as presented. He is cleared for surgery from cardiac standpoint. His risk of perioperative cardiac complications is increased, but not prohibitive.
[2017-12-10] MEDS ORDERED: Chlorhexidine 4% Topical 120 APPLIC/120 ML Bottle TOPICAL ONE (16:53)
[2017-12-10] MEDS ORDERED: Influenza (Quadrivalent) Vaccine 0.5 ML Syringe IM ONE (17:00)
--- NOTE | 2017-12-10 17:18 | P.CONNS ---
History of Present Illness Service: Neurosurgery Consult date: 12/10/17 Requesting Physician: Arturo Marcus Reason for Consult: Severe lumbar stenosis with paraparesis Primary Care Provider: UNKNOWN History of Present Illness: 77-year-old gentleman who presents for an evaluation of low back pain and weakness in the lower extremities. His family helps give the history. He has pain in both superior buttock area that started about 6 months ago and improved with pain medication. He has since gotten more weakness in his LEs especially in the last 2 months and he now cannot stand up. He has pain in the LEs below his knees all over. He denies any numbness or tingling in the LEs. He is urinating more frequently but no incontinence of bladder or bowel. Hospital [place] 4 months ago with generalized weakness and cardiomyopathy with COPD exacerbation and according to the they do not expect him to survive but somehow his condition improved. Approximately 2 months ago his condition started to deteriorate with the weakness in his legs and inability to ambulate and was again admitted to [facility] and had an MRI scan of the lumbar spine about 3 weeks ago and is informed that he had L1-2 and L2-3 spinal stenosis with a large herniated disc along with extensive scoliosis and multilevel degenerative changes. The neurosurgeon recommended surgery but the patient and the family elected on nonsurgical management with rehabilitation. He has been in a rehab facility since then with progressive decline and no improvement in his lower extremity strength with minimal movement and inability to stand or walk. The family relates that Dr. Leyva also did not feel that he tolerate surgery from a cardiac standpoint and did not clear him for surgery. At this point given the lack of improvement in his condition and they are requesting to proceed with the lumbar spine surgery. He is admitted for progressive weakness and inability to ambulate. [facility] - History History Provided By: Patient, Medical Record - Medical History Medical History: Medical History (Last Reviewed 12/10/17 @ 17:11 by Enio Merritt MD) A-fib CHF (congestive heart failure) COPD (chronic obstructive pulmonary disease) Depression Diabetes GERD (gastroesophageal reflux disease) Hyperkalemia Hyperlipemia Hypertension Muscle spasm UTI (urinary tract infection) - Surgical History Surgical History: Surgical History (Last Reviewed 12/10/17 @ 17:11 by Enio Merritt MD) History of bilateral knee replacement - Family History Family History: Family History (Last Reviewed 12/10/17 @ 17:11 by Enio Merritt MD) Mother Heart attack - Tobacco History Second Hand Smoke Exposure: No Tobacco Use In Past 30 Days: No Smoking Status: Never smoker - Alcohol History How Often Do You Have a Drink Containing Alcohol: Never - Substance Use History Substance History: No History of Abuse - Travel History Recent Travel in the [place] Within the Last 8 Weeks: No Recent Travel Out of the Country Within the Last 8 Weeks: No - Immunization History Tetanus Immunization: Unsure Hx Influenza Vaccine This Season: No Medications and Allergies Active Medications: Active Medications Amiodarone HCl (Cordarone) 200 mg PO DAILY [facility] Atorvastatin Calcium (Lipitor) 20 mg PO DAILY [facility] Budesonide/Formoterol Fumarate (Symbicort 80/4.5 Mcg Inh) 2 puff INH BID [facility] Bumetanide (Bumex) 0.5 mg PO DAILY [facility] Chlorhexidine Gluconate (Hibiclens 4% Topical) 1 applicatio TOPICAL ONCE ONE Stop: 12/10/17 16:54 Dextrose (D50w Vial) 50 ml IV.PUSH UNSCH PRN PRN Reason: PER HYPOGLYCEMIA PROTOCOL Glucagon (Glucagon Inj) 1 mg OTHER PRN PRN PRN Reason: for Hypoglycemia Protocol Insulin Aspart (Novolog Insulin Correctional Sugar Inj) 0 unit SQ ACHS [facility]; Protocol Last Admin: 12/10/17 13:35 Dose: Not Given Melatonin (Melatonin) 5 mg PO HS PRN PRN Reason: INSOMNIA Metoprolol Tartrate (Lopressor) 50 mg PO BID [facility] Mirtazapine (Remeron) 15 mg PO DAILY [facility] Nitroglycerin (Nitrostat Sl (Override)) 0.4 mg SL Q5M PRN PRN Reason: Chest Pain Orphenadrine Citrate (Norflex Cr) 100 mg PO BID [facility] Oxycodone HCl (Oxycontin Cr) 10 mg PO Q12H [facility] Oxycodone/Acetaminophen (Percocet 5/325 Mg) 1 tab PO Q4HR PRN PRN Reason: PAIN 1-10 Pantoprazole Sodium (Protonix) 20 mg PO DAILY [facility] Patient Own Medicationterbinafin e Hcl [Terbinafine Hcl] 1%Cream 0 each TOPICAL BID [facility] Prednisone (Deltasone) 15 mg PO DAILY [facility] Sacubitril/Valsartan (Entresto 24 Mg/26 Mg Tablet) 1 tab PO BID [facility] Allergies Allergy/AdvReac Type Severity Reaction Status Date / Time Sulfa (Sulfonamide Allergy Mild Burning Verified 12/10/17 09:46 Antibiotics) aspirin Allergy Bleeding Verified 12/10/17 10:22 Home Medications Medication Instructions Recorded Confirmed Type amiodarone 200 mg PO DAILY 12/10/17 12/10/17 History atorvastatin 20 mg PO DAILY 12/10/17 12/10/17 History budesonide-formoterol [Symbicort] 2 puff INHALATION BID 12/10/17 12/10/17 History bumetanide 0.5 mg PO DAILY 12/10/17 12/10/17 History insulin lispro [Humalog KwikPen 20 unit SUBCUT BID 12/10/17 12/10/17 History Insulin] melatonin 3 mg PO HS PRN 12/10/17 12/10/17 History metformin 500 mg PO BID 12/10/17 12/10/17 History metoprolol tartrate 50 mg PO BID 12/10/17 12/10/17 History mirtazapine 15 mg PO DAILY 12/10/17 12/10/17 History nitroglycerin [Nitrostat] 0.4 mg SUBLINGUAL Q5-15M PRN 12/10/17 12/10/17 History omeprazole 20 mg PO DAILY 12/10/17 12/10/17 History orphenadrine citrate 100 mg PO BID 12/10/17 12/10/17 History oxycodone 10 mg PO Q12H 12/10/17 12/10/17 History oxycodone-acetaminophen 1 tab PO Q4HR PRN 12/10/17 12/10/17 History prednisone 15 mg PO DAILY 12/10/17 12/10/17 History sacubitril-valsartan [Entresto] 1 tab PO BID 12/10/17 12/10/17 History terbinafine HCl 1 applic TOPICAL BID 12/10/17 12/10/17 History Exam Vital signs: Vital Signs 12/10/17 09:50 12/10/17 09:55 12/10/17 12:00 Temperature 97.7 F 98.3 F Pulse Rate 72 63 Respiratory Rate 21 18 Blood Pressure 152/69 H 145/69 H Pulse Oximetry 96 99 12/10/17 16:45 Temperature Pulse Rate Respiratory Rate Blood Pressure Pulse Oximetry 95 Intake & Output 12/09/17 12/10/17 12/10/17 18:59 06:59 18:59 Intake Total 240 / 240 Balance 240 / 240 Weight 60 kg Intake: Oral 240 / 240 Other: Weight On Admission 60 kg - Constitutional no acute distress - Routine HEENT Exam Head: Present: normocephalic, atraumatic Eye: Present: EOMI, PERRL ENT: Present: mucous membranes moist, oropharynx clear, external ear normal - Routine Neck Exam Present: supple - Routine Respiratory Exam Present: CTA bilaterally - Routine Cardiovascular Exam Present: RRR, S1, S2 - Routine Abdominal Exam Present: soft, normoactive bowel sounds - Routine Extremities Exam Present: edema - Routine Skin Exam Present: intact - Routine Neurological Exam Present: oriented X3, CN II-XII intact, motor deficit (Chronic atrophy and weakness in the upper extremities with strength 3 to 4-/5 in the lower extremities is 1/5), normal speech Results - Laboratory Findings CBC and BMP: 12/10/17 10:04 12/10/17 10:04 Abnormal lab findings: Abnormal Labs 12/10/17 12/10/17 12/10/17 10:04 10:04 10:04 RBC 3.98 L Hgb 10.8 L Hct 33.6 L RDW 22.1 H Plt Count 143 L PT 9.5 L APTT Sodium 135 L Chloride 95 L BUN 39 H Estimated GFR 71 L POC Glucose Random Glucose 217 H Calcium 8.4 L AST 45 H Total Protein 6.0 L Albumin 2.6 L 12/10/17 12/10/17 10:04 16:59 RBC Hgb Hct RDW Plt Count PT APTT 18.6 L Sodium Chloride BUN Estimated GFR POC Glucose 245 H Random Glucose Calcium AST Total Protein Albumin - Diagnostic Findings Additional findings: Impressions Chest X-Ray 12/10/17 09:54 CONCLUSION: Minimal bibasilar subsegmental atelectasis. No infiltrate. Assessment and Plan - Assessment (1) Paraparesis of both lower limbs Code(s): G82.20 - Paraplegia, unspecified Status: Chronic (2) Spinal stenosis of lumbar region Code(s): M48.061 - Spinal stenosis, lumbar region without neurogenic claudication Status: Chronic (3) Unable to ambulate Code(s): R26.2 - Difficulty in walking, not elsewhere classified Status: Chronic - Plan 77-year-old gentleman with severe paraparesis near plegia for the past 2 months although symptoms have been ongoing for the past 6 months. He also has generalized atrophy involving the upper and lower extremities which is chronic related to steroid use and medications for his rheumatoid arthritis. The more recent finding is severe paraparesis in the lower extremities with an inability to stand or walk with a 1/5 movement although he denies incontinence and has sensation in his legs. He has a severe L2-3 spinal stenosis from combination of facet and ligamentum flavum hypertrophy along with a large disc herniation lesser degree of stenosis at L1-2 levels. I do not have the MRI of the cervical and thoracic spine but the report relates multilevel cervical stenosis with compression although no intrinsic spinal cord changes and no stenosis noted in the thoracic spine. It appears that his current symptoms are more related to the lumbar spine. He also has extensive degenerative scoliosis and disc disease with the spondylolisthesis in the lumbar sacral spine. I agree that surgical intervention is indicated involving L1-L3 laminectomy with L2-3 microdiscectomy. Given his significant medical comorbidities in particular his advanced COPD and cardiomyopathy his risk for complications are in the high range including . This was discussed with the patient, his and Dr. Orlando who is his neighbor as well as his son who is a decorating consultant in [place] over the phone. Patient has been cleared by Dr. Leyva for cardiology with moderate risk and he also discussed this with the family and the patient's son and they are willing to accept these risks. I have also discussed with Dr. Dooley his water treatment plant operator who will evaluate him today for pulmonary clearance. Plan is for lumbar spinal surgery tomorrow. (2) Spinal stenosis of lumbar region Qualifiers: Neurogenic claudication status: with neurogenic claudication Qualified Code(s ): M48.062 - Spinal stenosis, lumbar region with neurogenic claudication
--- NOTE | 2017-12-10 18:27 | ECHRPT ---
Indication: CARDIOMYOPATHY CONCLUSIONS The left ventricular systolic function is low normal with an estimated ejection fraction in the rang e of 50- 55%. Mild concentric left ventricular hypertrophy. Trace mitral valve regurgitation. There is trace tricuspid valve regurgitation. Mild pulmonary valve regurgitation. BP: / HR: Rhythm: Technical Quality: FINDINGS LEFT VENTRICLE Normal left ventricular size. Mild concentric left ventricular hypertrophy. The left ventricular systolic function is low normal with an estimated ejection fraction in the rang e of 50- 55%. RIGHT VENTRICLE Normal right ventricular size and systolic function. LEFT ATRIUM The left atrial size is mildly dilated. RIGHT ATRIUM The right atrial size is normal. ATRIAL SEPTUM Normal atrial septal thickness AORTA The aortic root and proximal ascending aorta are normal in size on limited imaging. MITRAL VALVE Mild mitral annular calcification. Trace mitral valve regurgitation. No mitral valve stenosis. AORTIC VALVE The aortic valve is not well visualized. Aortic valve sclerosis is present. No aortic valve regurgitation. No aortic valve stenosis. TRICUSPID VALVE Grossly normal There is trace tricuspid valve regurgitation. The estimated pulmonary arterial pressure is 38 mmHg. PULMONARY VALVE Mild pulmonary valve regurgitation. VESSELS The inferior vena cava is normal in size. PERICARDIUM No pericardial effusion. Cortes Blake DO (Electronically Signed) Final Date:10 December 2017 18:26
--- NOTE | 2017-12-10 19:54 | MB ---
cc: Zoe Arredondo MD DATE: 12/10/2017 REASON FOR CONSULTATION: Clearance for surgery for spinal stenosis. HISTORY OF PRESENT ILLNESS: This is a 77-year-old man with a history of diabetes mellitus, hypertension, asthma, COPD and atrial fibrillation with CHF as well as severe rheumatoid arthritis, who was admitted with complaints of lower extremity weakness, difficulty in ambulation and progressive spinal stenosis. The patient has been investigated as an outpatient and now is being admitted for surgery on his spinal stenosis. The patient has been using nebulized albuterol solution as well as inhaled steroids, but has been off of Xolair, which was being given for his asthmatic condition. The patient has had no fevers or chills. Denies any yellow sputum. Denies any significant wheezing at this time. PAST MEDICAL HISTORY: Includes hypertension, diabetes mellitus, depression, anxiety, COPD, arthritis and severe deconditioning, previous UTI and chronic back pain. PAST SURGICAL HISTORY: Includes bilateral total knee replacements more than 10 years ago. HABITS: The patient is a nonsmoker. No alcohol use. Lives with his . FAMILY HISTORY: Significant for heart disease in his mother. REVIEW OF SYSTEMS: The patient has generalized weakness and has trouble ambulating. He has joint pains and back pain. He has dizzy attacks and postnasal drip. He has wheezing and epigastric distress. He has urinary frequency, but no fevers or chills. He has no skin rash. ALLERGIES: SULFA AND ASPIRIN. MEDICATION LIST: Included: 1. Bumex 0.5 mg daily. 2. Insulin 20 units subcutaneous b.i.d. 3. Humalog. 4. Amiodarone 200 mg daily. 5. Metoprolol 50 mg b.i.d. 6. Mirtazapine 50 mg daily. 7. Prednisone 15 mg daily. 8. Entresto one tablet b.i.d. 9. Terbinafine hydrochloride topical application. 10. Omeprazole 20 mg a day. 11. Metformin 500 mg b.i.d. PHYSICAL EXAMINATION: GENERAL: This is an averagely built, elderly man, pale and in no acute distress. VITAL SIGNS: Blood pressure 150/70, pulse 75, respirations 16, temperature 97.2. HEENT: Head is normocephalic. Pupils are reactive. Sclerae are clear. Nasal mucosa injected. Ears, no inflammation. Throat is clear. NECK: Supple. No venous distention. No thyromegaly or lymphadenopathy. CHEST: Equal movements with occasional scattered wheezes, prolonged expirations. HEART: Sounds are regular. S1 and S2 with no murmur. ABDOMEN: Soft, protuberant without masses. No organomegaly or tenderness. Bowel sounds active. EXTREMITIES: Peripheral pulses are diminished. Marked muscle wasting of all the extremities and joint deformities of the hands and feet as well as knees. Peripheral pulses are not well felt. NEUROLOGIC: Reflexes are 1+ with weakness of all the extremities. SKIN: Dry and scaly. IMPRESSION: 1. Spinal stenosis. 2. Asthma with chronic obstructive pulmonary disease. 3. Hypertension. 4. Diabetes mellitus. 5. Deconditioning. 6. Chronic back pain. 7. Rheumatoid arthritis. 8. Atrial fibrillation. 9. Congestive heart failure. PLAN: The patient will be continued on prednisone 15 mg daily. Nebulized DuoNeb solution added t.i.d. p.r.n. and he will be given Breo Ellipta 1 puff daily 100 mcg. The patient is cleared for surgery with a moderate risk of having postoperative atelectasis and/or pneumonia. We will start him on incentive spirometry every 2 hours. He may need a boost of steroids in the perioperative period. Oxygen supplementation will be used to 2 liters p.r.n. and CPAP at night, which he has at home. Thank you, Dr. Merritt, for this consultation. I will follow the case with you. Zoe Arredondo MD VVILMA/angus , 06:08 PM , 06:24 PM
[2017-12-10] MEDS ORDERED: [UNRECOGNIZED DRUG - OTHER] TOPICAL SCH (21:00)
[2017-12-10] MEDS ORDERED: Melatonin 5 MG Tablet PO PRN (21:00)
[2017-12-10] MEDS ORDERED: TERBINAFINE HCL 1% TOPICAL SCH (21:00)
[2017-12-10] MEDS: oxyCODONE 10 MG Controlled Release Tablet PO SCH (21:21)
[2017-12-10] MEDS: Metoprolol Tartrate 50 MG Tablet PO SCH (21:21)
[2017-12-10] MEDS: Budesonide-Formoterol 80/4.5 MCG 6.9 GM Inhaler INH SCH (21:27)
[2017-12-11 07:23] LABS: Baso % (Auto) 0.2 % (0.0-2.0); Eos % (Auto) 0.5 % (0.0-4.0); Hematocrit 26.7 % (39.0-51.0); Hemoglobin 8.6 gm/dL (13.0-17.0); Lymph # (Auto) 1.8 th/mm3 (1.0-4.8); Lymph % (Auto) 25.6 % (9.0-44.0); Mean Corpuscular HGB Conc 32.4 % (32.0-36.0); Mean Corpuscular Hemoglobin 27.3 pg (27.0-34.0); Mean Corpuscular Volume 84.5 fL (80.0-100.0); Mean Platelet Volume 8.3 fL (7.0-11.0); Mono # (Auto) 0.7 th/mm3 (0.0-0.9); Mono % (Auto) 10.3 % (0.0-8.0); Neut # (Auto) 4.6 th/mm3 (1.8-7.7); Neut % (Auto) 63.4 % (16.0-70.0); Platelet Count 142 th/mm3 (150-450); Red Blood Count 3.16 mil/mm3 (4.50-5.90); Red Cell Distribution Width 21.7 % (11.6-17.2); White Blood Count 7.2 th/mm3 (4.0-11.0)
[2017-12-11 07:41] LABS: Albumin 2.2 g/dL (3.4-5.0); Anion Gap 10 meq/L (5-15); Aspartate Aminotransferase 32 U/L (15-37); Blood Urea Nitrogen 34 mg/dL (7-18); Calcium 7.8 mg/dL (8.5-10.1); Carbon Dioxide 32.3 meq/L (21.0-32.0); Chloride 98 meq/L (98-107); Glomerular Filtration Rate 87 mL/min (>89); Glucose,Random 123 mg/dL (74-106); Potassium 3.8 meq/L (3.5-5.1); Sodium 140 meq/L (136-145)
[2017-12-11 07:47] LABS: Alanine Aminotransferase 45 U/L (12-78); Alkaline Phosphatase 76 U/L (45-117); Total Protein 5.1 g/dL (6.4-8.2)
[2017-12-11] MEDS: Insulin NovoLOG Aspart Correctional Sugar Inj SQ SCH ×3 (09:29→17:09)
[2017-12-11] MEDS: predniSONE 5 MG Tablet PO SCH (09:43)
[2017-12-11] MEDS: Metoprolol Tartrate 50 MG Tablet PO SCH (09:43)
[2017-12-11] MEDS: Mirtazapine 15 MG Tablet PO SCH (09:43)
[2017-12-11] MEDS: Amiodarone 200 MG Tablet PO SCH (09:43)
[2017-12-11] MEDS: Pantoprazole Sodium 20 MG DR Tablet PO SCH (09:43)
[2017-12-11] MEDS: oxyCODONE 10 MG Controlled Release Tablet PO SCH (09:46)
[2017-12-11] MEDS: Budesonide-Formoterol 80/4.5 MCG 6.9 GM Inhaler INH SCH (09:47)
[2017-12-11] MEDS ORDERED: Metoprolol Tartrate 25 MG Tablet PO ONE (10:17)
[2017-12-11] MEDS ORDERED: Chlorhexidine Gluconate 2% 1 Pack (2 Cloths) TOPICAL ONE (10:17)
[2017-12-11] MEDS ORDERED: Sodium Chlor 0.9% Inj 500 ML IV.SIG SCH (11:00)
--- NOTE | 2017-12-11 11:58 | P.PNFP ---
Subjective Interval history: No acute events overnight. Family at bedside. Patient states that he has a little bit of mild to moderate back pain. Also still having weakness in his lower extremities. Unchanged from admission. Patient will be going for neurosurgery this afternoon. Discussed with family that patient will most likely go to the ICU for a day after surgery. Patient denies fevers, chest pain , shortness of breath, nausea vomiting, and abdominal pain. <Mariam Rosen T - 12/11/17 13:55> Results - Labs Result diagrams: 12/11/17 06:27 12/11/17 06:27 <Arturo Marcus L - 12/11/17 16:00> Abnormal lab results 12/10/17 12/10/17 12/11/17 Range/Units 16:59 21:26 06:27 RBC 3.16 L (4.50-5.90) mil/mm3 Hgb 8.6 L D (13.0-17.0) gm/dL Hct 26.7 L (39.0-51.0) % RDW 21.7 H (11.6-17.2) % Plt Count 142 L (150-450) th/mm3 Trinity % (Auto) 10.3 H (0.0-8.0) % Carbon Dioxide (21.0-32.0) meq/L BUN (7-18) mg/dL Estimated GFR (>89) mL/min POC Glucose 245 H 120 H (68-110) mg/dl Random Glucose (74-106) mg/dL Calcium (8.5-10.1) mg/dL Total Protein (6.4-8.2) g/dL Albumin (3.4-5.0) g/dL 12/11/17 Range/Units 06:27 RBC (4.50-5.90) mil/mm3 Hgb (13.0-17.0) gm/dL Hct (39.0-51.0) % RDW (11.6-17.2) % Plt Count (150-450) th/mm3 Trinity % (Auto) (0.0-8.0) % Carbon Dioxide 32.3 H (21.0-32.0) meq/L BUN 34 H (7-18) mg/dL Estimated GFR 87 L (>89) mL/min POC Glucose (68-110) mg/dl Random Glucose 123 H (74-106) mg/dL Calcium 7.8 L (8.5-10.1) mg/dL Total Protein 5.1 L D (6.4-8.2) g/dL Albumin 2.2 L (3.4-5.0) g/dL Short CBC 12/11/17 Range/Units 06:27 WBC 7.2 (4.0-11.0) th/mm3 Hgb 8.6 L D (13.0-17.0) gm/dL Hct 26.7 L (39.0-51.0) % Plt Count 142 L (150-450) th/mm3 BMP 12/11/17 06:27 Sodium 140 Potassium 3.8 Chloride 98 Carbon Dioxide 32.3 H BUN 34 H Creatinine 0.85 Calcium 7.8 L Liver Function 12/11/17 Range/Units 06:27 Total Bilirubin 0.2 (0.2-1.0) mg/dL AST 32 (15-37) U/L ALT 45 (12-78) U/L Alkaline Phosphatase 76 (45-117) U/L Albumin 2.2 L (3.4-5.0) g/dL <YoungArturo L - 12/11/17 16:00> Abnormal lab results 12/10/17 12/10/17 12/11/17 Range/Units 16:59 21:26 06:27 RBC 3.16 L (4.50-5.90) mil/mm3 Hgb 8.6 L D (13.0-17.0) gm/dL Hct 26.7 L (39.0-51.0) % RDW 21.7 H (11.6-17.2) % Plt Count 142 L (150-450) th/mm3 Trinity % (Auto) 10.3 H (0.0-8.0) % Carbon Dioxide (21.0-32.0) meq/L BUN (7-18) mg/dL Estimated GFR (>89) mL/min POC Glucose 245 H 120 H (68-110) mg/dl Random Glucose (74-106) mg/dL Calcium (8.5-10.1) mg/dL Total Protein (6.4-8.2) g/dL Albumin (3.4-5.0) g/dL 12/11/17 Range/Units 06:27 RBC (4.50-5.90) mil/mm3 Hgb (13.0-17.0) gm/dL Hct (39.0-51.0) % RDW (11.6-17.2) % Plt Count (150-450) th/mm3 Trinity % (Auto) (0.0-8.0) % Carbon Dioxide 32.3 H (21.0-32.0) meq/L BUN 34 H (7-18) mg/dL Estimated GFR 87 L (>89) mL/min POC Glucose (68-110) mg/dl Random Glucose 123 H (74-106) mg/dL Calcium 7.8 L (8.5-10.1) mg/dL Total Protein 5.1 L D (6.4-8.2) g/dL Albumin 2.2 L (3.4-5.0) g/dL Short CBC 12/11/17 Range/Units 06:27 WBC 7.2 (4.0-11.0) th/mm3 Hgb 8.6 L D (13.0-17.0) gm/dL Hct 26.7 L (39.0-51.0) % Plt Count 142 L (150-450) th/mm3 BMP 12/11/17 06:27 Sodium 140 Potassium 3.8 Chloride 98 Carbon Dioxide 32.3 H BUN 34 H Creatinine 0.85 Calcium 7.8 L Liver Function 12/11/17 Range/Units 06:27 Total Bilirubin 0.2 (0.2-1.0) mg/dL AST 32 (15-37) U/L ALT 45 (12-78) U/L Alkaline Phosphatase 76 (45-117) U/L Albumin 2.2 L (3.4-5.0) g/dL <Mariam Rosen T - 12/11/17 11:58> Physical Exam Vital signs: Vital Signs 12/10/17 16:00 12/10/17 16:45 12/10/17 20:00 Temperature 97.9 F 97.9 F Pulse Rate 64 64 Respiratory Rate 18 17 Blood Pressure 116/64 106/61 Pulse Oximetry 94 L 95 97 12/10/17 20:59 12/10/17 21:00 12/11/17 00:00 Temperature 98.0 F Pulse Rate 72 66 Respiratory Rate 19 19 Blood Pressure 118/64 Pulse Oximetry 100 97 12/11/17 03:47 12/11/17 03:48 12/11/17 04:00 Temperature 97.4 F L Pulse Rate 89 66 Respiratory Rate 19 18 Blood Pressure 132/67 Pulse Oximetry 99 98 12/11/17 08:00 12/11/17 12:00 Temperature 97.9 F 97.2 F L Pulse Rate 60 61 Respiratory Rate 17 17 Blood Pressure 132/76 146/68 H Pulse Oximetry 96 98 Intake & Output 12/10/17 12/11/17 12/11/17 18:59 06:59 18:59 Intake Total 240 / 240 Output Total 300 / 300 Balance -60 / -60 Weight 60 kg 59.5 kg Intake: Oral 240 / 240 Output: Urine 300 / 300 Other: # Voids 1 # Incontinent Voids 4 Date of Last Bowel Movement 12/10/17 12/10/17 12/10/17 Weight On Admission 60 kg <Young,Arturo L - 12/11/17 16:00> Vital Signs 12/10/17 12:00 12/10/17 16:00 12/10/17 16:45 Temperature 98.3 F 97.9 F Pulse Rate 63 64 Respiratory Rate 18 18 Blood Pressure 145/69 H 116/64 Pulse Oximetry 99 94 L 95 12/10/17 20:00 12/10/17 20:59 12/10/17 21:00 Temperature 97.9 F Pulse Rate 64 72 Respiratory Rate 17 19 Blood Pressure 106/61 Pulse Oximetry 97 100 12/11/17 00:00 12/11/17 03:47 12/11/17 03:48 Temperature 98.0 F Pulse Rate 66 89 Respiratory Rate 19 19 Blood Pressure 118/64 Pulse Oximetry 97 99 12/11/17 04:00 12/11/17 08:00 Temperature 97.4 F L 97.9 F Pulse Rate 66 61 Respiratory Rate 18 17 Blood Pressure 132/67 132/76 Pulse Oximetry 98 100 Intake & Output 12/10/17 12/11/17 12/11/17 18:59 06:59 18:59 Intake Total 240 / 240 Output Total 300 / 300 Balance -60 / -60 Weight 60 kg 59.5 kg Intake: Oral 240 / 240 Output: Urine 300 / 300 Other: # Voids 1 # Incontinent Voids 4 Date of Last Bowel Movement 12/10/17 12/10/17 Weight On Admission 60 kg <Mariam Rosen T - 12/11/17 11:58> Narrative: General: Thin elderly male, in no acute distress HEENT: PERRLA, EOMI, throat clear, no lymphadenopathy Cardio: Regular rate and rhythm, no murmurs rubs or gallops Pulmonary: Clear to auscultation bilaterally, no wheezes or crackles Abdomen: Soft, nontender, nondistended, positive bowel sounds, no rebound, no guarding Extremities: 2/3 out of 5 strength in lower extremities, chronic atrophy of muscles, 2+ pedal pulses, sensation intact, rheumatoid arthritis of both hands Neuro: Alert and oriented x3 <Mariam Rosen T - 12/11/17 13:55> Assessment and Plan - Assessment (1) Spinal stenosis of lumbar region Code(s): M48.061 - Spinal stenosis, lumbar region without neurogenic claudication Status: Chronic (2) Diabetes Code(s): E11.9 - Type 2 diabetes mellitus without complications Status: Acute (3) A-fib Code(s): I48.91 - Unspecified atrial fibrillation Status: Acute (4) HTN (hypertension) Code(s): I10 - Essential (primary) hypertension Status: Acute (5) Hyperlipidemia Code(s): E78.5 - Hyperlipidemia, unspecified Status: Acute (6) COPD (chronic obstructive pulmonary disease) Code(s): J44.9 - Chronic obstructive pulmonary disease, unspecified Status: Acute (7) GERD (gastroesophageal reflux disease) Code(s): K21.9 - Gastro-esophageal reflux disease without esophagitis Status: Acute (8) Nutrition, metabolism, and development symptoms Code(s): R63.8 - Other symptoms and signs concerning food and fluid intake Status: Acute <AmritArturo Orlando - 12/11/17 16:00> (1) Spinal stenosis of lumbar region Code(s): M48.061 - Spinal stenosis, lumbar region without neurogenic claudication Status: Chronic Plan: 77-year-old male with history of A.fib, hypertension, type 2 diabetes, COPD, CHF , rheumatoid arthritis, severe spinal stenosis sent to the ED from assisted living by for worsening lower extremity weakness and inability to ambulate. -Neurosurgery will be performing lumbar spinal surgery today, L1-L3 laminectomy and L2-3 microdiscectomy -Patient was cleared by Dr. Leyva for cardiology with moderate risk and cleared by pulmonology with moderate risk of having postoperative atelectasis and/or pneumonia (2) Diabetes Code(s): E11.9 - Type 2 diabetes mellitus without complications Status: Acute Plan: Held home metformin and Humalog Accu-Cheks Hypoglycemia protocol in place Low-dose sliding scale (3) A-fib Code(s): I48.91 - Unspecified atrial fibrillation Status: Acute Plan: Continue home amiodarone 200 mg daily and metoprolol Patient is not on anticoagulation at home (4) HTN (hypertension) Code(s): I10 - Essential (primary) hypertension Status: Acute Plan: Continue home Entresto (5) Hyperlipidemia Code(s): E78.5 - Hyperlipidemia, unspecified Status: Acute Plan: Continue home atorvastatin (6) COPD (chronic obstructive pulmonary disease) Code(s): J44.9 - Chronic obstructive pulmonary disease, unspecified Status: Acute Plan: Duoneb Continue home symbicort and prednisone (7) GERD (gastroesophageal reflux disease) Code(s): K21.9 - Gastro-esophageal reflux disease without esophagitis Status: Acute Plan: Continue home protonix (8) Nutrition, metabolism, and development symptoms Code(s): R63.8 - Other symptoms and signs concerning food and fluid intake Status: Acute Plan: Fluids: not indicated Diet: NPO for surgery today vitals q4h, cardiac telemetry, monitor I & Os DVT ppx: SCDs <Mariam Rosen - 12/11/17 13:45> - Attending Attestation The exam, history, and the medical decision-making described in the above note were completed with the assistance of the resident physician. I reviewed and agree with the findings presented. I attest that I had a meco-tv-iior encounter with the patient on the same day, and personally performed and documented my assessment and findings in the medical record. Patient evaluated with resident team this morning. Plan is for laminectomy for severe lumbar stenosis affecting motor function of lower extremities. After discussing risks and benefits of procedure, he elects to proceed with surgery. He is moderate risk per cardiology and pulmonology given his comorbidities. We will continue medical management. <Arturo Marcus - 12/11/17 16:00> <Mariam Rosen T - Last Filed: 12/11/17 13:45> (1) Spinal stenosis of lumbar region Qualifiers: Neurogenic claudication status: with neurogenic claudication Qualified Code(s ): M48.062 - Spinal stenosis, lumbar region with neurogenic claudication <Arturo Marcus - Last Filed: 12/11/17 16:00> (1) Spinal stenosis of lumbar region Qualifiers: Neurogenic claudication status: with neurogenic claudication Qualified Code(s ): M48.062 - Spinal stenosis, lumbar region with neurogenic claudication <Mariam Rosen T - Last Filed: 12/11/17 13:45> (1) Spinal stenosis of lumbar region Qualifiers: Neurogenic claudication status: with neurogenic claudication Qualified Code(s ): M48.062 - Spinal stenosis, lumbar region with neurogenic claudication <Arturo Marcus - Last Filed: 12/11/17 16:00> (1) Spinal stenosis of lumbar region Qualifiers: Neurogenic claudication status: with neurogenic claudication Qualified Code(s ): M48.062 - Spinal stenosis, lumbar region with neurogenic claudication
[2017-12-11] MEDS ORDERED: Propofol Inj 500 MG/50 ML Vial ONE (14:32)
[2017-12-11] MEDS ORDERED: Bupivacaine/Epinephrine 0.5% Inj 50 ML Vial ONE (14:37)
[2017-12-11] MEDS ORDERED: methylPREDNISolone acetate 40 MG/ML VIAL ONE (14:37)
[2017-12-11] MEDS ORDERED: Thrombin Topical Soln 5,000 UNIT Vial TOPICAL ONE (14:37)
[2017-12-11] MEDS ORDERED: Gelatin Size 100 Topical Foam ONE (14:38)
--- NOTE | 2017-12-11 15:09 | P.PNCA ---
Subjective Interval history: Patient denies any CP, pressure, palpitations, dizziness, edema or SOB. Patient does complain of lower extremity weakness and back pain. Medications and Allergies Allergies Allergy/AdvReac Type Severity Reaction Status Date / Time Sulfa (Sulfonamide Allergy Mild Burning Verified 12/10/17 09:46 Antibiotics) aspirin Allergy Bleeding Verified 12/10/17 10:22 Home Medications Medication Instructions Recorded Confirmed Type amiodarone 200 mg PO DAILY 12/10/17 12/10/17 History atorvastatin 20 mg PO DAILY 12/10/17 12/10/17 History budesonide-formoterol [Symbicort] 2 puff INHALATION BID 12/10/17 12/10/17 History bumetanide 0.5 mg PO DAILY 12/10/17 12/10/17 History insulin lispro [Humalog KwikPen 20 unit SUBCUT BID 12/10/17 12/10/17 History Insulin] melatonin 3 mg PO HS PRN 12/10/17 12/10/17 History metformin 500 mg PO BID 12/10/17 12/10/17 History metoprolol tartrate 50 mg PO BID 12/10/17 12/10/17 History mirtazapine 15 mg PO DAILY 12/10/17 12/10/17 History nitroglycerin [Nitrostat] 0.4 mg SUBLINGUAL Q5-15M PRN 12/10/17 12/10/17 History omeprazole 20 mg PO DAILY 12/10/17 12/10/17 History orphenadrine citrate 100 mg PO BID 12/10/17 12/10/17 History oxycodone 10 mg PO Q12H 12/10/17 12/10/17 History oxycodone-acetaminophen 1 tab PO Q4HR PRN 12/10/17 12/10/17 History prednisone 15 mg PO DAILY 12/10/17 12/10/17 History sacubitril-valsartan [Entresto] 1 tab PO BID 12/10/17 12/10/17 History terbinafine HCl 1 applic TOPICAL BID 12/10/17 12/10/17 History Active Medications: Active Medications Albuterol (Duoneb Neb (Matthew)) 1 ampul NEB Q8HR ALT NEB MATTHEW Last Admin: 12/11/17 14:28 Dose: Not Given Amiodarone HCl (Cordarone) 200 mg PO DAILY MATTHEW Last Admin: 12/11/17 09:43 Dose: 200 mg Atorvastatin Calcium (Lipitor) 20 mg PO DAILY [facility] Last Admin: 12/11/17 09:43 Dose: 20 mg Budesonide/Formoterol Fumarate (Symbicort 80/4.5 Mcg Inh) 2 puff INH BID [facility] Last Admin: 12/11/17 09:47 Dose: 2 puff Bumetanide (Bumex) 0.5 mg PO DAILY [facility] Last Admin: 12/11/17 09:42 Dose: 0.5 mg Dextrose (D50w Vial) 50 ml IV.PUSH UNSCH PRN PRN Reason: PER HYPOGLYCEMIA PROTOCOL Glucagon (Glucagon Inj) 1 mg OTHER PRN PRN PRN Reason: for Hypoglycemia Protocol Lactated Ringer's (Lr 1000 Ml Inj) 1,000 mls @ 30 mls/hr IV.SIG .Q24H [facility] Stop: 12/12/17 10:29 Sodium Chloride (Ns Inj) 500 mls @ 30 mls/hr IV.SIG .Q10H [facility] Insulin Aspart (Novolog Insulin Correctional Sugar Inj) 0 unit SQ ACHS [facility]; Protocol Last Admin: 12/11/17 11:52 Dose: Not Given Melatonin (Melatonin) 5 mg PO HS PRN PRN Reason: INSOMNIA Metoprolol Tartrate (Lopressor) 50 mg PO BID [facility] Last Admin: 12/11/17 09:43 Dose: 50 mg Mirtazapine (Remeron) 15 mg PO DAILY [facility] Last Admin: 12/11/17 09:43 Dose: 15 mg Nitroglycerin (Nitrostat Sl (Override)) 0.4 mg SL Q5M PRN PRN Reason: Chest Pain Orphenadrine Citrate (Norflex Cr) 100 mg PO BID [facility] Last Admin: 12/11/17 09:43 Dose: 100 mg Oxycodone HCl (Oxycontin Cr) 10 mg PO Q12H [facility] Last Admin: 12/11/17 09:46 Dose: 10 mg Oxycodone/Acetaminophen (Percocet 5/325 Mg) 1 tab PO Q4HR PRN PRN Reason: PAIN 1-10 Last Admin: 12/10/17 17:14 Dose: 1 tab Pantoprazole Sodium (Protonix) 20 mg PO DAILY [facility] Last Admin: 12/11/17 09:43 Dose: 20 mg Patient Own Medicationterbinafin e Hcl [Terbinafine Hcl] 1%Cream 0 each TOPICAL BID [facility] Prednisone (Deltasone) 15 mg PO DAILY [facility] Last Admin: 12/11/17 09:43 Dose: 15 mg Sacubitril/Valsartan (Entresto 24 Mg/26 Mg Tablet) 1 tab PO BID [facility] Last Admin: 12/11/17 09:43 Dose: 1 tab Physical Exam Vital signs: Vital Signs 12/10/17 16:00 12/10/17 16:45 12/10/17 20:00 Temperature 97.9 F 97.9 F Pulse Rate 64 64 Respiratory Rate 18 17 Blood Pressure 116/64 106/61 Pulse Oximetry 94 L 95 97 12/10/17 20:59 12/10/17 21:00 12/11/17 00:00 Temperature 98.0 F Pulse Rate 72 66 Respiratory Rate 19 19 Blood Pressure 118/64 Pulse Oximetry 100 97 12/11/17 03:47 12/11/17 03:48 12/11/17 04:00 Temperature 97.4 F L Pulse Rate 89 66 Respiratory Rate 19 18 Blood Pressure 132/67 Pulse Oximetry 99 98 12/11/17 08:00 12/11/17 12:00 Temperature 97.9 F 97.2 F L Pulse Rate 60 61 Respiratory Rate 17 17 Blood Pressure 132/76 146/68 H Pulse Oximetry 96 98 Intake & Output 12/10/17 12/11/17 12/11/17 18:59 06:59 18:59 Intake Total 240 / 240 Output Total 300 / 300 Balance -60 / -60 Weight 60 kg 59.5 kg Intake: Oral 240 / 240 Output: Urine 300 / 300 Other: # Voids 1 # Incontinent Voids 4 Date of Last Bowel Movement 12/10/17 12/10/17 12/10/17 Weight On Admission 60 kg - Constitutional no acute distress - Routine HEENT Exam Head: Present: normocephalic Eye: Present: PERRL ENT: Present: mucous membranes moist - Routine Neck Exam Present: supple - Routine Respiratory Exam Present: CTA bilaterally - Routine Cardiovascular Exam Present: S1, S2. Absent: murmur, gallop, rubs - Routine Abdominal Exam Present: normoactive bowel sounds - Routine Extremities Exam Present: pulses intact, normal capillary refill. Absent: cyanosis, clubbing, edema Comments: lower extremity weakness. - Routine Skin Exam Present: intact - Routine Neurological Exam Present: oriented X3 - Detailed Neurological Exam: Coma Scale Eye Opening: Spontaneous Verbal Response: Oriented Motor Response: Obey commands Lalo Coma Scale Total: 15 - Routine Psychiatric Exam Present: normal affect Results 12/11/17 06:27 12/11/17 06:27 Cardiac Enzymes 12/10/17 12/11/17 Range/Units 10:04 06:27 AST 45 H 32 (15-37) U/L Coagulation 12/10/17 12/10/17 Range/Units 10:04 10:04 PT 9.5 L (9.8-11.6) sec APTT 18.6 L (24.3-30.1) sec CBC 12/10/17 12/11/17 Range/Units 10:04 06:27 WBC 9.7 7.2 (4.0-11.0) th/mm3 RBC 3.98 L 3.16 L (4.50-5.90) mil/mm3 Hgb 10.8 L 8.6 L D (13.0-17.0) gm/dL Hct 33.6 L 26.7 L (39.0-51.0) % Plt Count 143 L 142 L (150-450) th/mm3 Neut # (Auto) 6.6 4.6 (1.8-7.7) th/mm3 Lymph # (Auto) 2.2 1.8 (1.0-4.8) th/mm3 White # (Auto) 0.7 0.7 (0.0-0.9) th/mm3 Eos # (Auto) 0.0 0.0 (0.0-0.4) th/mm3 Baso # (Auto) 0.1 0.0 (0.0-0.2) th/mm3 Comprehensive Metabolic Panel 12/10/17 12/11/17 Range/Units 10:04 06:27 Sodium 135 L 140 (136-145) meq/L Potassium 4.5 3.8 (3.5-5.1) meq/L Chloride 95 L 98 (98-107) meq/L Carbon Dioxide 31.4 32.3 H (21.0-32.0) meq/L BUN 39 H 34 H (7-18) mg/dL Creatinine 1.02 0.85 (0.60-1.30) mg/dL Calcium 8.4 L 7.8 L (8.5-10.1) mg/dL AST 45 H 32 (15-37) U/L ALT 53 45 (12-78) U/L Alkaline Phosphatase 113 76 (45-117) U/L Total Protein 6.0 L 5.1 L D (6.4-8.2) g/dL Albumin 2.6 L 2.2 L (3.4-5.0) g/dL Intake and Output 12/11/17 12/11/17 12/11/17 06:59 14:59 22:59 Other: # Incontinent Voids 4 Date of Last Bowel Movement 12/10/17 Weight 59.5 kg - Imaging and Cardiology Imaging: Impressions Chest X-Ray 12/10/17 09:54 CONCLUSION: Minimal bibasilar subsegmental atelectasis. No infiltrate. Assessment and Plan - Assessment (1) Spinal stenosis of lumbar region Code(s): M48.061 - Spinal stenosis, lumbar region without neurogenic claudication Status: Chronic (2) Unable to ambulate Code(s): R26.2 - Difficulty in walking, not elsewhere classified Status: Chronic (3) Diabetes Code(s): E11.9 - Type 2 diabetes mellitus without complications Status: Acute (4) A-fib Code(s): I48.91 - Unspecified atrial fibrillation Status: Acute (5) HTN (hypertension) Code(s): I10 - Essential (primary) hypertension Status: Acute (6) Hyperlipidemia Code(s): E78.5 - Hyperlipidemia, unspecified Status: Acute (7) COPD (chronic obstructive pulmonary disease) Code(s): J44.9 - Chronic obstructive pulmonary disease, unspecified Status: Acute - Plan Patient is scheduled today for back surgery. No evidence of angina or CHF exacerbation. Patient was cleared by Dr. Leyva for surgery from a cardiac standpoint on November 13, 2017. Patient cleared from cardiac standpoint for surgery. His risk of cardiac perioperative complications is increased, but not prohibitive. Proceed with the surgery as planned today. The patient was seen and evaluated by Dr. Holder who participated in care, management and decision-making. - Attending Attestation Patient seen and examined. I reviewed and agree with the evaluation and plan as presented. He remains stable from cardiac standpoint. Proceed with the surgery as planned. (1) Spinal stenosis of lumbar region Qualifiers: Neurogenic claudication status: with neurogenic claudication Qualified Code(s ): M48.062 - Spinal stenosis, lumbar region with neurogenic claudication
[2017-12-11] MEDS ORDERED: Hydrocortisone Sod Succinate 100 MG Vial ONE (16:27)
[2017-12-11] MEDS ORDERED: Sugammadex Inj 200 MG/2 ML Vial IV.PUSH ONE (17:38)
[2017-12-11] MEDS ORDERED: Menthol 5.8 MG Lozenge BUCCAL PRN (18:05)
[2017-12-11] MEDS ORDERED: Bisacodyl 10 MG Supp RECTAL PRN (18:05)
[2017-12-11] MEDS ORDERED: Aluminum/Magnesium/Simethacone Susp 30 ML UDC PO PRN (18:05)
[2017-12-11] MEDS ORDERED: Potassium Chlor 20 mEq Premix 20 MEQ/100 ML PIGGYBACK IV.SIG PRN (18:05)
[2017-12-11] MEDS ORDERED: Morphine Inj 4 MG/ML Vial IV.PUSH PRN (18:05)
[2017-12-11] MEDS ORDERED: Magnesium Sulfate Inj 2 GM in Sodium Chlor 0.9% Inj 96 ML IV.SIG PRN (18:05)
[2017-12-11] MEDS ORDERED: Acetaminophen 325 MG Tablet PO PRN (18:05)
--- NOTE | 2017-12-11 18:15 | P.OP ---
- Preoperative Diagnosis (1) Spinal stenosis of lumbar region (2) Paraparesis of both lower limbs Date of procedure: 12/11/17 Procedure: Lumbar L2 and L3 decompressive laminectomy with medial facetectomy and microdiscectomy; microsurgical technique Anesthesia: GETA Surgeon: Enio Merritt MD Estimated blood loss (mL): 50 Operation and Findings: Following administration of general endotracheal anesthesia, patient received vancomycin 1 g intravenously. Sequential compression devices were placed for DVT prophylaxis. He was then turned in prone position on Shady frame and the Daryl table and all pressure points adequately padded. The lumbar region was then shaved and prepped with a Betadine and ChloraPrep. Sterile draping undertaken with Ioban. Midline incision overlying the L2-3 level was then made after infiltrating the skin with 0.5% Marcaine with epinephrine solution. The skin incision was made extending down through the fascia and then using the subperiosteal plane on the right side the muscular attachments to the spinous process and lamina were detached. Intraoperative fluoroscopy was used for level confirmation and further dissection undertaken using microtechnique with microscope magnification. The inferior portion of the L2 and superior portion of the L3 lamina were then drilled out and the underlying ligamentum flavum also removed. There was significant facet arthropathy noted and the medial portion of facet was also resected and the lateral recess decompressed. There was significant scoliotic deformity also noted. Epidural venous stasis was achieved with the bipolar cautery along with Gelfoam and thrombin and bone wax used at the laminotomy edges for hemostasis. The thecal sac was then gently retracted with a nerve root retractor and a large extruded disc fragment was identified which was superiorly migrated. Fragments were removed with pituitary forceps and the nerve root impingement along with thecal sac compression decompressed. The area was then copiously irrigated with vancomycin solution. The retractors removed and the muscle fascia proximal using 2-0 Vicryl interrupted stitches. 3-0 Vicryl subcuticular stitches were also placed in an interrupted fashion and planned skin closure was with Mastisol and Steri-Strips. A sterile dressing was then applied and the patient then turned in the supine position and extubated and taken to recovery room in stable condition. There were no intraoperative complications and all sponge and needle count was correct at the end of the procedure. Estimated blood loss about 50 ml.
[2017-12-11] MEDS ORDERED: Sodium Chloride 0.9% 2 ML Flush PRN IV.FLUSH (18:24)
--- NOTE | 2017-12-11 18:27 | P.PN ---
Subjective Interval history: He is Stable and will go for lumbar laminectomy. On 2 l O2 PRN Physical Exam Vital signs: Vital Signs 12/10/17 20:00 12/10/17 20:59 12/10/17 21:00 Temperature 97.9 F Pulse Rate 64 72 Respiratory Rate 17 19 Blood Pressure 106/61 Pulse Oximetry 97 100 12/11/17 00:00 12/11/17 03:47 12/11/17 03:48 Temperature 98.0 F Pulse Rate 66 89 Respiratory Rate 19 19 Blood Pressure 118/64 Pulse Oximetry 97 99 12/11/17 04:00 12/11/17 08:00 12/11/17 12:00 Temperature 97.4 F L 97.9 F 97.2 F L Pulse Rate 66 60 61 Respiratory Rate 18 17 17 Blood Pressure 132/67 132/76 146/68 H Pulse Oximetry 98 96 98 Intake & Output 12/10/17 12/11/17 12/11/17 18:59 06:59 18:59 Intake Total 240 / 240 Output Total 300 / 300 Balance -60 / -60 Weight 60 kg 59.5 kg Intake: Oral 240 / 240 Output: Urine 300 / 300 Other: # Voids 1 # Incontinent Voids 4 Date of Last Bowel Movement 12/10/17 12/10/17 12/10/17 Weight On Admission 60 kg Narrative: General: Thin elderly male, in no acute distress HEENT: PERRLA, EOMI, throat clear, no lymphadenopathy Cardio: Regular rate and rhythm, no murmurs rubs or gallops Pulmonary: Clear to auscultation bilaterally, no wheezes or crackles Abdomen: Soft, nontender, nondistended, positive bowel sounds, no rebound, no guarding Extremities: 2/3 out of 5 strength in lower extremities, chronic atrophy of muscles of all limbs, 2+ pedal pulses, sensation intact, rheumatoid arthritis of both hands Neuro: Alert and oriented x3 Results - Labs CBC & Chem 7: 12/11/17 06:27 12/11/17 06:27 Laboratory Results - last 24 hr 12/10/17 12/11/17 12/11/17 21:26 06:27 06:27 WBC 7.2 RBC 3.16 L Hgb 8.6 L D Hct 26.7 L MCV 84.5 MCH 27.3 MCHC 32.4 RDW 21.7 H Plt Count 142 L MPV 8.3 Neut % (Auto) 63.4 Lymph % (Auto) 25.6 [place] % (Auto) 10.3 H Eos % (Auto) 0.5 Baso % (Auto) 0.2 Neut # (Auto) 4.6 Lymph # (Auto) 1.8 [place] # (Auto) 0.7 Eos # (Auto) 0.0 Baso # (Auto) 0.0 WBC Differential . Differential Comment Auto diff final Sodium 140 Potassium 3.8 Chloride 98 Carbon Dioxide 32.3 H Anion Gap 10 BUN 34 H Creatinine 0.85 Estimated GFR 87 L POC Glucose 120 H Random Glucose 123 H Calcium 7.8 L Total Bilirubin 0.2 AST 32 ALT 45 Alkaline Phosphatase 76 Total Protein 5.1 L D Albumin 2.2 L Assessment and Plan - Assessment (1) Asthma Code(s): J45.909 - Unspecified asthma, uncomplicated Status: Acute (2) Spinal stenosis of lumbar region Code(s): M48.061 - Spinal stenosis, lumbar region without neurogenic claudication Status: Chronic (3) Unable to ambulate Code(s): R26.2 - Difficulty in walking, not elsewhere classified Status: Chronic (4) Diabetes Code(s): E11.9 - Type 2 diabetes mellitus without complications Status: Acute (5) A-fib Code(s): I48.91 - Unspecified atrial fibrillation Status: Acute (6) HTN (hypertension) Code(s): I10 - Essential (primary) hypertension Status: Acute (7) Hyperlipidemia Code(s): E78.5 - Hyperlipidemia, unspecified Status: Acute (8) COPD (chronic obstructive pulmonary disease) Code(s): J44.9 - Chronic obstructive pulmonary disease, unspecified Status: Acute (9) Nutrition, metabolism, and development symptoms Code(s): R63.8 - Other symptoms and signs concerning food and fluid intake Status: Acute (10) GERD (gastroesophageal reflux disease) Code(s): K21.9 - Gastro-esophageal reflux disease without esophagitis Status: Acute (11) Paraparesis of both lower limbs Code(s): G82.20 - Paraplegia, unspecified Status: Chronic - Plan 1. O2 2 L N/C 2. Cont prednisone 15 mg daily. 3. Duoneb nebs qid . 4. symbicort 160/4.5 mcg , 2 puffs BID 5. CBC,BMP ,CXR in am (2) Spinal stenosis of lumbar region Qualifiers: Neurogenic claudication status: with neurogenic claudication Qualified Code(s ): M48.062 - Spinal stenosis, lumbar region with neurogenic claudication
[2017-12-11] MEDS ORDERED: fentaNYL Citrate Inj 100 MCG/2 ML Ampul ONE (18:35)
--- NOTE | 2017-12-11 19:00 | XR ---
EXAM DATE: 12/11/2017 6:48 PM EDT AGE/SEX: 77 years / Male INDICATIONS: L1, L2, L3 laminectomy level localization. CLINICAL DATA: This is the patient's initial encounter. Patient reports that signs and symptoms have been present for 1 day and indicates a pain score of Nonresponsive. MEDICAL/SURGICAL HISTORY: Non-responsive. Non-responsive. COMPARISON: No prior exams available for comparison. FINDINGS: A single coned-down lateral view of the lumbar spine was obtained. This demonstrates posterior spinal retractors in place with the metallic probe posterior to the L2-3 interspace. The study is labeled a ssuming 5 nonrib-bearing lumbar-type vertebra. There is an apparent mild anterior spondylolisthesis o f L5 on S1 of several millimeters. There is poor bony detail. CONCLUSION: Limited localization study. Electronically signed by: Arturo Ramirez MD 12/11/2017 6:59 PM EDT
[2017-12-11 19:16] LABS: Hematocrit 26.7 % (39.0-51.0); Hemoglobin 8.8 gm/dL (13.0-17.0); Mean Corpuscular HGB Conc 32.8 % (32.0-36.0); Mean Corpuscular Hemoglobin 27.2 pg (27.0-34.0); Mean Corpuscular Volume 82.8 fL (80.0-100.0); Mean Platelet Volume 8.2 fL (7.0-11.0); Platelet Count 148 th/mm3 (150-450); Red Blood Count 3.23 mil/mm3 (4.50-5.90); Red Cell Distribution Width 21.6 % (11.6-17.2); White Blood Count 7.1 th/mm3 (4.0-11.0)
[2017-12-11 19:37] LABS: Anion Gap 6 meq/L (5-15); Blood Urea Nitrogen 29 mg/dL (7-18); Calcium 7.5 mg/dL (8.5-10.1); Carbon Dioxide 32.7 meq/L (21.0-32.0); Chloride 101 meq/L (98-107); Glomerular Filtration Rate Greater Than 89 mL/min (>89); Glucose,Random 182 mg/dL (74-106); Magnesium 1.8 mg/dL (1.5-2.5); Sodium 140 meq/L (136-145)
[2017-12-11 19:43] LABS: Lymphocytes 11 % (9-44); Monocytes 5 % (0-8); Myelocytes 1 % (0-0)
[2017-12-11 19:44] LABS: Ovalocytes 1+; Platelet Estimate Normal (Normal); Platelet Morphology Normal (Normal)
[2017-12-11] MEDS ORDERED: Calcium Gluconate Inj 1 GM in Sodium Chlor 0.9% Inj 100 ML IV.SIG PRN (20:00)
[2017-12-11] MEDS: ceFAZolin 1 GM Premix Inj 1 GM/50 ML FROZ.PIGGY IV.SIG SCH (23:05)
[2017-12-12] MEDS: oxyCODONE 10 MG Controlled Release Tablet PO SCH ×3 (00:48→21:03)
[2017-12-12] MEDS: Metoprolol Tartrate 50 MG Tablet PO SCH ×3 (00:49→21:06)
[2017-12-12] MEDS: Senna/Docusate Sodium 8.6/50 MG Tablet PO SCH ×3 (00:49→21:05)
[2017-12-12] MEDS: Sodium Chloride 0.9% 2 ML Flush BID IV.FLUSH SCH ×3 (00:50→21:06)
[2017-12-12] MEDS: Budesonide-Formoterol 80/4.5 MCG 6.9 GM Inhaler INH SCH ×3 (00:51→21:00)
[2017-12-12] MEDS: Insulin NovoLOG Aspart Correctional Sugar Inj SQ SCH ×5 (00:51→22:11)
[2017-12-12] MEDS: ceFAZolin 1 GM Premix Inj 1 GM/50 ML FROZ.PIGGY IV.SIG SCH ×2 (05:45→13:12)
[2017-12-12 06:57] LABS: Baso % (Auto) 0.1 % (0.0-2.0); Hematocrit 28.6 % (39.0-51.0); Hemoglobin 9.3 gm/dL (13.0-17.0); Lymph # (Auto) 0.6 th/mm3 (1.0-4.8); Lymph % (Auto) 7.8 % (9.0-44.0); Mean Corpuscular HGB Conc 32.6 % (32.0-36.0); Mean Corpuscular Hemoglobin 27.5 pg (27.0-34.0); Mean Corpuscular Volume 84.4 fL (80.0-100.0); Mean Platelet Volume 8.3 fL (7.0-11.0); Mono # (Auto) 0.2 th/mm3 (0.0-0.9); Mono % (Auto) 3.2 % (0.0-8.0); Neut # (Auto) 6.8 th/mm3 (1.8-7.7); Neut % (Auto) 88.9 % (16.0-70.0); Platelet Count 145 th/mm3 (150-450); Red Blood Count 3.39 mil/mm3 (4.50-5.90); Red Cell Distribution Width 21.7 % (11.6-17.2); White Blood Count 7.6 th/mm3 (4.0-11.0)
[2017-12-12 07:21] LABS: Calcium 7.5 mg/dL (8.5-10.1); Potassium 4.6 meq/L (3.5-5.1)
[2017-12-12] MEDS: Pantoprazole Sodium 20 MG DR Tablet PO SCH (09:56)
[2017-12-12] MEDS: predniSONE 5 MG Tablet PO SCH (09:56)
[2017-12-12] MEDS: Mirtazapine 15 MG Tablet PO SCH (09:56)
[2017-12-12] MEDS: Amiodarone 200 MG Tablet PO SCH (09:57)
--- NOTE | 2017-12-12 10:02 | XR ---
EXAM DATE: 12/12/2017 9:59 AM EDT AGE/SEX: 77 years / Male INDICATIONS: Atelectasis CLINICAL DATA: This is the patient's initial encounter. Patient reports that signs and symptoms have been present for 3 days and indicates a pain score of 0/10. MEDICAL/SURGICAL HISTORY: . asthma, copd None. COMPARISON: . FINDINGS: A single AP view of the chest demonstrates minimal bibasilar subsegmental atelectasis without evidenc e of mass, infiltrate or effusion. There is some minimal scarring in the left midlung. The cardiomedi astinal contours are unremarkable. Osseous structures are intact. CONCLUSION: Minimal bibasilar subsegmental atelectasis. No acute cardiopulmonary disease. Electronically signed by: Yung Jeronimo MD 12/12/2017 10:01 AM EDT
--- NOTE | 2017-12-12 11:36 | P.PNFP ---
Subjective Interval history: Patient seen with Dr. Rosen this morning. He is S/P day 1 after laminectomy of L2/ L3 for spinal stenosis. He is sitting up in bed eating. No distress. Reports very minimal pain in back. Reports improved strength in legs. Has good appetite. Is awake and alert. No coughing, wheezing, shortness of breath, palpitations, chest pain, abdominal pain, nausea, vomiting, diarrhea. No bowel movement since surgery. Vital signs and electrolytes stable. No saddle anesthesia, normal urination, no fevers. Results - Labs Result diagrams: 12/12/17 03:37 12/12/17 03:37 Abnormal lab results 12/11/17 12/11/17 12/11/17 Range/Units 18:48 18:48 22:07 RBC 3.23 L (4.50-5.90) mil/mm3 Hgb 8.8 L (13.0-17.0) gm/dL Hct 26.7 L (39.0-51.0) % RDW 21.6 H (11.6-17.2) % Plt Count 148 L (150-450) th/mm3 Neut % (Auto) (16.0-70.0) % Lymph % (Auto) (9.0-44.0) % Lymph # (Auto) (1.0-4.8) th/mm3 Seg Neuts % (Manual) 80 H (16-70) % Myelocytes % (Man) 1 H (0-0) % Ovalocytes 1+ H (None) Carbon Dioxide 32.7 H (21.0-32.0) meq/L BUN 29 H (7-18) mg/dL Estimated GFR (>89) mL/min POC Glucose 162 H (68-110) mg/dl Random Glucose 182 H (74-106) mg/dL Calcium 7.5 L (8.5-10.1) mg/dL 12/12/17 12/12/17 12/12/17 Range/Units 03:37 03:37 08:29 RBC 3.39 L (4.50-5.90) mil/mm3 Hgb 9.3 L (13.0-17.0) gm/dL Hct 28.6 L (39.0-51.0) % RDW 21.7 H (11.6-17.2) % Plt Count 145 L (150-450) th/mm3 Neut % (Auto) 88.9 H (16.0-70.0) % Lymph % (Auto) 7.8 L (9.0-44.0) % Lymph # (Auto) 0.6 L (1.0-4.8) th/mm3 Seg Neuts % (Manual) (16-70) % Myelocytes % (Man) (0-0) % Ovalocytes (None) Carbon Dioxide (21.0-32.0) meq/L BUN 33 H (7-18) mg/dL Estimated GFR 81 L (>89) mL/min POC Glucose 151 H (68-110) mg/dl Random Glucose 148 H (74-106) mg/dL Calcium 7.5 L (8.5-10.1) mg/dL Short CBC 12/11/17 12/12/17 Range/Units 18:48 03:37 WBC 7.1 7.6 (4.0-11.0) th/mm3 Hgb 8.8 L 9.3 L (13.0-17.0) gm/dL Hct 26.7 L 28.6 L (39.0-51.0) % Plt Count 148 L 145 L (150-450) th/mm3 BMP 12/11/17 12/12/17 18:48 03:37 Sodium 140 141 Potassium 4.0 4.6 Chloride 101 101 Carbon Dioxide 32.7 H 30.0 BUN 29 H 33 H Creatinine 0.72 0.91 Calcium 7.5 L 7.5 L - Imaging Impressions Lumbar Spine X-Ray 12/11/17 00:00 CONCLUSION: Limited localization study. Chest X-Ray 12/12/17 00:00 CONCLUSION: Minimal bibasilar subsegmental atelectasis. No acute cardiopulmonary disease. Physical Exam Vital signs: Vital Signs 12/11/17 12:00 12/11/17 18:19 12/11/17 18:20 Temperature 97.2 F L 97.6 F Pulse Rate 61 59 L Respiratory Rate 17 21 8 L Blood Pressure 146/68 H 100/57 L Pulse Oximetry 98 100 100 12/11/17 18:30 12/11/17 18:45 12/11/17 19:00 Temperature Pulse Rate 57 L 57 L 57 L Respiratory Rate 10 L 12 12 Blood Pressure 102/56 L 118/63 116/60 Pulse Oximetry 100 100 100 12/11/17 19:15 12/11/17 19:30 12/11/17 19:45 Temperature 97.9 F Pulse Rate 54 L 58 L 86 Respiratory Rate 8 L 9 L 15 Blood Pressure 116/62 131/67 136/70 Pulse Oximetry 100 100 100 12/11/17 20:00 12/11/17 21:00 12/11/17 21:53 Temperature 97.3 F L Pulse Rate 60 85 Respiratory Rate 18 16 20 Blood Pressure 143/70 H Pulse Oximetry 95 100 12/12/17 00:00 12/12/17 04:00 12/12/17 08:00 Temperature 97.2 F L 97.5 F L 97.3 F L Pulse Rate 63 64 73 Respiratory Rate 18 18 18 Blood Pressure 116/63 129/68 120/68 Pulse Oximetry 95 98 99 Intake & Output 12/11/17 12/12/17 12/12/17 18:59 06:59 18:59 Intake Total 1300 / 1300 1600 / 1600 Output Total 100 / 100 Balance 1200 / 1200 1600 / 1600 Weight 60.6 kg Intake: IV 1100 / 1100 NS + KCl 20 mEq Inj 1,000 ML @ 1000 / 1000 100 mls/hr IV.CONT .Q10H ALHAJI Rx #:[id number] Ancef 1 GM Premix Inj 1 gm In 100 / 100 50 ml @ 100 mls/hr IV.SIG Q8H ALHAJI Rx#:[id number] Oral 500 / 500 Anesthesia Amount 1300 / 1300 Output: Estimated Blood Loss 100 / 100 Other: # Incontinent Voids 1 Date of Last Bowel Movement 12/10/17 12/12/17 # Incontinent Bowel Movements 1 Narrative: General: Sitting up in bed, eating, no distress HEENT: Normocephalic, no conjunctivitis, no nasal discharge Neck: Supple CV: RRR, no murmurs, rubs, or gallops Lungs: CTAB, no wheezing, rales, or rhonchi Abdomen: Soft, nontender, nondistended, normal bowel sounds Ext: Able to lift both legs against gravity plus mild extra resistance, atrophy of of lower extremity muscles, sensation is in tact. Significant arthritis of both hands with associated bony deformities. Neuro: Awake, alert, oriented, no distress Assessment and Plan - Assessment (1) Spinal stenosis of lumbar region Code(s): M48.061 - Spinal stenosis, lumbar region without neurogenic claudication Status: Chronic Plan: 77-year-old male with history of A.fib, hypertension, type 2 diabetes, COPD, CHF , rheumatoid arthritis, severe spinal stenosis sent to the ED from assisted living by for worsening lower extremity weakness and inability to ambulate. Now S/P day 1 after laminectomy L2-L3. Hgb and electrolytes, vital signs normal after surgery. -Neurosurgery on board -Will need good physical therapy/rehab to build up strength in legs and improve functioning - Pain management: oxycodone 10 mg q12hrs scheduled, Percocet 5/325 1 tab q4hrs pain 1-5, Percocet 5/325 2 tabs q4hrs pain 6 to 10, orphenadrine 100 mg bid for muscle spasms (2) Diabetes Code(s): E11.9 - Type 2 diabetes mellitus without complications Status: Acute Plan: Held home metformin and Humalog Accu-Cheks Hypoglycemia protocol in place Low-dose sliding scale (3) A-fib Code(s): I48.91 - Unspecified atrial fibrillation Status: Acute Plan: Continue home amiodarone 200 mg daily and metoprolol Patient is not on anticoagulation at home, will discuss with family (4) HTN (hypertension) Code(s): I10 - Essential (primary) hypertension Status: Acute Plan: Continue home Entresto (5) Hyperlipidemia Code(s): E78.5 - Hyperlipidemia, unspecified Status: Acute Plan: Continue home atorvastatin (6) COPD (chronic obstructive pulmonary disease) Code(s): J44.9 - Chronic obstructive pulmonary disease, unspecified Status: Acute Plan: Duoneb as needed Continue home symbicort and prednisone (7) GERD (gastroesophageal reflux disease) Code(s): K21.9 - Gastro-esophageal reflux disease without esophagitis Status: Acute Plan: Continue home protonix (8) Nutrition, metabolism, and development symptoms Code(s): R63.8 - Other symptoms and signs concerning food and fluid intake Status: Acute Plan: Fluids: PO Diet: diabetic diet vitals q4h, cardiac telemetry, monitor I & Os DVT ppx: SCDs - Assessment and Plan Discussed Condition With: Seen and discussed with Dr. Rosen (1) Spinal stenosis of lumbar region Qualifiers: Neurogenic claudication status: with neurogenic claudication Qualified Code(s ): M48.062 - Spinal stenosis, lumbar region with neurogenic claudication
--- NOTE | 2017-12-12 13:57 | P.PNNS ---
Subjective Interval history: Pt awake and alert. Resting comfortably in bed. Incisional pain controlled. Pt states he has some improvement in his strength. He has been oob today. Complains of dysuria. <Yung Chapa - Last Filed: 12/12/17 13:31> Physical Exam Vital signs: Vital Signs 12/11/17 18:19 12/11/17 18:20 12/11/17 18:30 Temperature 97.6 F Pulse Rate 59 L 57 L Respiratory Rate 21 8 L 10 L Blood Pressure 100/57 L 102/56 L Pulse Oximetry 100 100 100 12/11/17 18:45 12/11/17 19:00 12/11/17 19:15 Temperature Pulse Rate 57 L 57 L 54 L Respiratory Rate 12 12 8 L Blood Pressure 118/63 116/60 116/62 Pulse Oximetry 100 100 100 12/11/17 19:30 12/11/17 19:45 12/11/17 20:00 Temperature 97.9 F 97.3 F L Pulse Rate 58 L 86 60 Respiratory Rate 9 L 15 18 Blood Pressure 131/67 136/70 143/70 H Pulse Oximetry 100 100 95 12/11/17 21:00 12/11/17 21:53 12/12/17 00:00 Temperature 97.2 F L Pulse Rate 85 63 Respiratory Rate 16 20 18 Blood Pressure 116/63 Pulse Oximetry 100 95 12/12/17 04:00 12/12/17 08:00 12/12/17 12:00 Temperature 97.5 F L 97.3 F L 97.5 F L Pulse Rate 64 73 68 Respiratory Rate 18 18 18 Blood Pressure 129/68 120/68 107/62 Pulse Oximetry 98 99 96 Intake & Output 12/11/17 12/12/17 12/12/17 18:59 06:59 18:59 Intake Total 1300 / 1300 1600 / 1600 Output Total 100 / 100 Balance 1200 / 1200 1600 / 1600 Weight 60.6 kg Intake: IV 1100 / 1100 NS + KCl 20 mEq Inj 1,000 ML @ 1000 / 1000 100 mls/hr IV.CONT .Q10H ALHAJI Rx #:[id number] Ancef 1 GM Premix Inj 1 gm In 100 / 100 50 ml @ 100 mls/hr IV.SIG Q8H ALHAJI Rx#:[id number] Oral 500 / 500 Anesthesia Amount 1300 / 1300 Output: Estimated Blood Loss 100 / 100 Other: # Incontinent Voids 1 Date of Last Bowel Movement 12/10/17 12/12/17 # Incontinent Bowel Movements 1 - Constitutional no acute distress - Routine HEENT Exam Head: Present: normocephalic Eye: Present: PERRL - Routine Respiratory Exam Present: CTA bilaterally. Absent: respiratory distress, rhonchi, wheezes - Routine Cardiovascular Exam Present: RRR, S1, S2. Absent: murmur - Routine Skin Exam Absent: cyanosis, erythema - Routine Neurological Exam Present: alert, motor deficit - Detailed Neurological Exam: Coma Scale Eye Opening: Spontaneous Verbal Response: Oriented Motor Response: Obey commands [place] Coma Scale Total: 15 - Routine Psychiatric Exam Present: normal affect, cooperative. Absent: anxious, agitated <Yung Chapa - Last Filed: 12/12/17 13:31> Vital signs: Vital Signs 12/11/17 18:19 12/11/17 18:20 12/11/17 18:30 Temperature 97.6 F Pulse Rate 59 L 57 L Respiratory Rate 21 8 L 10 L Blood Pressure 100/57 L 102/56 L Pulse Oximetry 100 100 100 12/11/17 18:45 12/11/17 19:00 12/11/17 19:15 Temperature Pulse Rate 57 L 57 L 54 L Respiratory Rate 12 12 8 L Blood Pressure 118/63 116/60 116/62 Pulse Oximetry 100 100 100 12/11/17 19:30 12/11/17 19:45 12/11/17 20:00 Temperature 97.9 F 97.3 F L Pulse Rate 58 L 86 60 Respiratory Rate 9 L 15 18 Blood Pressure 131/67 136/70 143/70 H Pulse Oximetry 100 100 95 12/11/17 21:00 12/11/17 21:53 12/12/17 00:00 Temperature 97.2 F L Pulse Rate 85 63 Respiratory Rate 16 20 18 Blood Pressure 116/63 Pulse Oximetry 100 95 12/12/17 04:00 12/12/17 08:00 12/12/17 12:00 Temperature 97.5 F L 97.3 F L 97.5 F L Pulse Rate 64 73 68 Respiratory Rate 18 18 18 Blood Pressure 129/68 120/68 107/62 Pulse Oximetry 98 99 96 Intake & Output 12/11/17 12/12/17 12/12/17 18:59 06:59 18:59 Intake Total 1300 / 1300 1600 / 1600 Output Total 100 / 100 Balance 1200 / 1200 1600 / 1600 Weight 60.6 kg Intake: IV 1100 / 1100 NS + KCl 20 mEq Inj 1,000 ML @ 1000 / 1000 100 mls/hr IV.CONT .Q10H ALHAJI Rx #:[id number] Ancef 1 GM Premix Inj 1 gm In 100 / 100 50 ml @ 100 mls/hr IV.SIG Q8H ALHAJI Rx#:[id number] Oral 500 / 500 Anesthesia Amount 1300 / 1300 Output: Estimated Blood Loss 100 / 100 Other: # Incontinent Voids 1 Date of Last Bowel Movement 12/10/17 12/12/17 # Incontinent Bowel Movements 1 - Routine Skin Exam Comments: Lumbar incision site is clean and dry with Steri-Strips in place; dressing changed - Routine Neurological Exam Present: motor deficit (Generalized atrophy in the upper and lower extremities with rheumatoid arthritic changes; lower extremity strength has improved to 2/5) <Enio Merritt - Last Filed: 12/12/17 14:08> Assessment and Plan - Assessment (1) Spinal stenosis of lumbar region Code(s): M48.061 - Spinal stenosis, lumbar region without neurogenic claudication Status: Chronic Qualifiers: Neurogenic claudication status: with neurogenic claudication Qualified Code (s): M48.062 - Spinal stenosis, lumbar region with neurogenic claudication (2) Unable to ambulate Code(s): R26.2 - Difficulty in walking, not elsewhere classified Status: Chronic (3) Diabetes Code(s): E11.9 - Type 2 diabetes mellitus without complications Status: Acute (4) A-fib Code(s): I48.91 - Unspecified atrial fibrillation Status: Acute (5) HTN (hypertension) Code(s): I10 - Essential (primary) hypertension Status: Acute (6) Hyperlipidemia Code(s): E78.5 - Hyperlipidemia, unspecified Status: Acute (7) COPD (chronic obstructive pulmonary disease) Code(s): J44.9 - Chronic obstructive pulmonary disease, unspecified Status: Acute (8) Nutrition, metabolism, and development symptoms Code(s): R63.8 - Other symptoms and signs concerning food and fluid intake Status: Acute - Plan A: 77-year-old gentleman with severe paraparesis near plegia for the past 2 months although symptoms have been ongoing for the past 6 months. He also has generalized atrophy involving the upper and lower extremities which is chronic related to steroid use and medications for his rheumatoid arthritis. The more recent finding is severe paraparesis in the lower extremities with an inability to stand or walk with a 1/5 movement although he denies incontinence and has sensation in his legs. He has a severe L2-3 spinal stenosis from combination of facet and ligamentum flavum hypertrophy along with a large disc herniation lesser degree of stenosis at L1-2 levels. S/p L2/L3 decompressive laminectomy with medical facetectomy and microdiscectomy on 12/12/17. P: Continue with pain control Continue with rehab efforts. Will check another UA if no signs of infection likely irritation. <Yung Chapa - Last Filed: 12/12/17 13:31> - Assessment (1) Paraparesis of both lower limbs Code(s): G82.20 - Paraplegia, unspecified Status: Chronic (2) Spinal stenosis of lumbar region Code(s): M48.061 - Spinal stenosis, lumbar region without neurogenic claudication Status: Chronic Qualifiers: Qualified Code(s): M48.062 - Spinal stenosis, lumbar region with neurogenic claudication (3) Unable to ambulate Code(s): R26.2 - Difficulty in walking, not elsewhere classified Status: Chronic - Attending Attestation The exam, history, and the medical decision-making described in the above note were completed with the assistance of the mid-level provider. I reviewed and agree with the findings presented. I attest that I had a [id number] encounter with the patient on the same day, and personally performed and documented my assessment and findings in the medical record. Improving lower extremity strength postop although still very weak and deconditioned. Plan on inpatient rehab placement when accepted. Discussed with family at bedside. <Enio Merritt - Last Filed: 12/12/17 14:08>
--- NOTE | 2017-12-12 14:09 | P.PNCA ---
Subjective Interval history: Patient denies any chest pain, pressure, palpitations, dizziness, edema or shortness of breath. Patient is mildly confused from anesthesia yesterday post back surgery. Patient was not aware that he already had the surgical procedure done yesterday. Medications and Allergies Allergies Allergy/AdvReac Type Severity Reaction Status Date / Time Sulfa (Sulfonamide Allergy Mild Burning Verified 12/10/17 09:46 Antibiotics) aspirin Allergy Bleeding Verified 12/10/17 10:22 Home Medications Medication Instructions Recorded Confirmed Type amiodarone 200 mg PO DAILY 12/10/17 12/10/17 History atorvastatin 20 mg PO DAILY 12/10/17 12/10/17 History budesonide-formoterol [Symbicort] 2 puff INHALATION BID 12/10/17 12/10/17 History bumetanide 0.5 mg PO DAILY 12/10/17 12/10/17 History insulin lispro [Humalog KwikPen 20 unit SUBCUT BID 12/10/17 12/10/17 History Insulin] melatonin 3 mg PO HS PRN 12/10/17 12/10/17 History metformin 500 mg PO BID 12/10/17 12/10/17 History metoprolol tartrate 50 mg PO BID 12/10/17 12/10/17 History mirtazapine 15 mg PO DAILY 12/10/17 12/10/17 History nitroglycerin [Nitrostat] 0.4 mg SUBLINGUAL Q5-15M PRN 12/10/17 12/10/17 History omeprazole 20 mg PO DAILY 12/10/17 12/10/17 History orphenadrine citrate 100 mg PO BID 12/10/17 12/10/17 History oxycodone 10 mg PO Q12H 12/10/17 12/10/17 History oxycodone-acetaminophen 1 tab PO Q4HR PRN 12/10/17 12/10/17 History prednisone 15 mg PO DAILY 12/10/17 12/10/17 History sacubitril-valsartan [Entresto] 1 tab PO BID 12/10/17 12/10/17 History terbinafine HCl 1 applic TOPICAL BID 12/10/17 12/10/17 History Active Medications: Active Medications Acetaminophen (Tylenol) 650 mg PO Q4H PRN PRN Reason: TEMPERATURE > 101.5 F Al Hydrox/Mg Hydrox/Simethicone (Mag-Al Plus Susp Liq) 30 ml PO Q6H PRN PRN Reason: DYSPEPSIA Al Hydroxide/Mg Hydroxide (Milk Of Magnesia Liq) 30 ml PO Q12H PRN PRN Reason: Mild Constipation Albuterol (Duoneb Neb (Matthew)) 1 ampul NEB Q8HR ALT NEB [facility] Last Admin: 12/12/17 13:04 Dose: Not Given Amiodarone HCl (Cordarone) 200 mg PO DAILY [facility] Last Admin: 12/12/17 09:57 Dose: 200 mg Atorvastatin Calcium (Lipitor) 20 mg PO DAILY [facility] Last Admin: 12/12/17 09:56 Dose: 20 mg Bisacodyl (Dulcolax Supp) 10 mg RECTAL DAILY PRN PRN Reason: SEVERE CONSITIPATION Budesonide/Formoterol Fumarate (Symbicort 80/4.5 Mcg Inh) 2 puff INH BID [facility] Last Admin: 12/12/17 13:06 Dose: 2 puff Bumetanide (Bumex) 0.5 mg PO DAILY [facility] Last Admin: 12/12/17 09:58 Dose: 0.5 mg Clonidine HCl (Catapres) 0.1 mg NG/OG Q6H PRN PRN Reason: SYS BP GREATER THAN 170 MMHG Dextrose (D50w Vial) 50 ml IV.PUSH UNSCH PRN PRN Reason: PER HYPOGLYCEMIA PROTOCOL Glucagon (Glucagon Inj) 1 mg OTHER PRN PRN PRN Reason: for Hypoglycemia Protocol Calcium Gluconate 1 gm/ Sodium (Chloride) 110 mls @ 110 mls/hr IV.SIG UNSCH PRN PRN Reason: SEE LABEL COMMENTS Magnesium Sulfate 2 gm/ Sodium (Chloride) 100 mls @ 100 mls/hr IV.SIG UNSCH PRN PRN Reason: MAGNESIUM LESS THAN 2 Potassium Chloride (Kcl 20 Meq Premix Inj) 20 meq in 100 mls @ 50 mls/hr IV.SIG UNSCH PRN PRN Reason: POTASSIUM LESS THAN 4 Cefazolin Sodium/Dextrose (Ancef 1 Gm Premix Inj) 1 gm in 50 mls @ 100 mls/hr IV.SIG Q8H MATTHEW Stop: 12/12/17 14:29 Last Admin: 12/12/17 13:12 Dose: 100 mls/hr Insulin Aspart (Novolog Insulin Correctional Sugar Inj) 0 unit SQ ACHS [facility]; Protocol Last Admin: 12/12/17 13:11 Dose: 1 unit Lactulose (Lactulose Liq) 30 ml PO BID [facility] Last Admin: 12/12/17 09:57 Dose: 30 ml Melatonin (Melatonin) 5 mg PO HS PRN PRN Reason: INSOMNIA Menthol (Girard) 1 lozenge BUCCAL UNSCH PRN PRN Reason: SORE THROAT Metoprolol Tartrate (Lopressor) 50 mg PO BID [facility] Last Admin: 12/12/17 09:56 Dose: 50 mg Mirtazapine (Remeron) 15 mg PO DAILY [facility] Last Admin: 12/12/17 09:56 Dose: 15 mg Miscellaneous Information ([facility] [place] Nursing Information) 1 each OTHER UNSCH PRN PRN Reason: SEE LABEL COMMENTS Stop: 12/12/17 18:37 Morphine Sulfate (Morphine Inj) 4 mg IV.PUSH Q4H PRN PRN Reason: Breakthrough pain Nitroglycerin (Nitrostat Sl (Override)) 0.4 mg SL Q5M PRN PRN Reason: Chest Pain Ondansetron HCl (Zofran Inj) 4 mg IV.PUSH Q6H PRN PRN Reason: NAUSEA OR VOMITING Orphenadrine Citrate (Norflex Cr) 100 mg PO BID [facility] Last Admin: 12/12/17 09:56 Dose: 100 mg Oxycodone HCl (Oxycontin Cr) 10 mg PO Q12H [facility] Last Admin: 12/12/17 09:57 Dose: 10 mg Oxycodone/Acetaminophen (Percocet 5/325 Mg) 1 tab PO Q4H PRN PRN Reason: PAIN SCALE 6 TO 10 Pantoprazole Sodium (Protonix) 20 mg PO DAILY [facility] Last Admin: 12/12/17 09:56 Dose: 20 mg Patient Own Medicationterbinafin e Hcl [Terbinafine Hcl] 1%Cream 0 each TOPICAL BID [facility] Prednisone (Deltasone) 15 mg PO DAILY [facility] Last Admin: 12/12/17 09:56 Dose: 15 mg Promethazine HCl (Phenergan Inj) 25 mg IM Q4H PRN PRN Reason: NAUSEA OR VOMITING Sacubitril/Valsartan (Entresto 24 Mg/26 Mg Tablet) 1 tab PO BID [facility] Last Admin: 12/12/17 09:56 Dose: 1 tab Senna/Docusate Sodium (Leslie-Colace) 1 tab PO BID [facility] Last Admin: 12/12/17 13:07 Dose: Not Given Sennosides (Senokot) 17.2 mg PO Q12H PRN PRN Reason: Moderate Constipation Last Admin: 12/12/17 10:09 Dose: 17.2 mg Sodium Chloride (Ns Flush) 2 ml IV.FLUSH BID [facility] Last Admin: 12/12/17 13:06 Dose: Not Given Sodium Chloride (Ns Flush) 2 ml IV.FLUSH PRN PRN PRN Reason: FLUSH AFTER USING IV ACCESS Physical Exam Vital signs: Vital Signs 12/11/17 18:19 12/11/17 18:20 12/11/17 18:30 Temperature 97.6 F Pulse Rate 59 L 57 L Respiratory Rate 21 8 L 10 L Blood Pressure 100/57 L 102/56 L Pulse Oximetry 100 100 100 12/11/17 18:45 12/11/17 19:00 12/11/17 19:15 Temperature Pulse Rate 57 L 57 L 54 L Respiratory Rate 12 12 8 L Blood Pressure 118/63 116/60 116/62 Pulse Oximetry 100 100 100 12/11/17 19:30 12/11/17 19:45 12/11/17 20:00 Temperature 97.9 F 97.3 F L Pulse Rate 58 L 86 60 Respiratory Rate 9 L 15 18 Blood Pressure 131/67 136/70 143/70 H Pulse Oximetry 100 100 95 12/11/17 21:00 12/11/17 21:53 12/12/17 00:00 Temperature 97.2 F L Pulse Rate 85 63 Respiratory Rate 16 20 18 Blood Pressure 116/63 Pulse Oximetry 100 95 12/12/17 04:00 12/12/17 08:00 12/12/17 12:00 Temperature 97.5 F L 97.3 F L 97.5 F L Pulse Rate 64 73 68 Respiratory Rate 18 18 18 Blood Pressure 129/68 120/68 107/62 Pulse Oximetry 98 99 96 Intake & Output 12/11/17 12/12/17 12/12/17 18:59 06:59 18:59 Intake Total 1300 / 1300 1600 / 1600 Output Total 100 / 100 Balance 1200 / 1200 1600 / 1600 Weight 60.6 kg Intake: IV 1100 / 1100 NS + KCl 20 mEq Inj 1,000 ML @ 1000 / 1000 100 mls/hr IV.CONT .Q10H MATTHEW Rx #:[id number] Ancef 1 GM Premix Inj 1 gm In 100 / 100 50 ml @ 100 mls/hr IV.SIG Q8H MATTHEW Rx#:[id number] Oral 500 / 500 Anesthesia Amount 1300 / 1300 Output: Estimated Blood Loss 100 / 100 Other: # Incontinent Voids 1 Date of Last Bowel Movement 12/10/17 12/12/17 # Incontinent Bowel Movements 1 - Constitutional no acute distress - Routine HEENT Exam Head: Present: normocephalic Eye: Present: PERRL ENT: Present: mucous membranes moist - Routine Neck Exam Present: full ROM - Routine Respiratory Exam Present: CTA bilaterally - Routine Cardiovascular Exam Present: S1, S2. Absent: murmur, gallop, rubs - Routine Abdominal Exam Present: normoactive bowel sounds - Routine Extremities Exam Present: full ROM, pulses intact, normal capillary refill. Absent: cyanosis, clubbing, edema - Routine Skin Exam Present: intact - Routine Neurological Exam Present: oriented X3 Patient is slightly confused from anesthesia yesterday and is unaware that his surgery has already been performed. He is alert and oriented to time place and person. - Detailed Neurological Exam: Coma Scale Eye Opening: Spontaneous Verbal Response: Oriented Motor Response: Obey commands Lalo Coma Scale Total: 15 - Routine Psychiatric Exam Present: normal affect Results 12/12/17 03:37 12/12/17 03:37 Cardiac Enzymes 12/11/17 Range/Units 06:27 AST 32 (15-37) U/L CBC 12/11/17 12/11/17 12/12/17 Range/Units 06:27 18:48 03:37 WBC 7.2 7.1 7.6 (4.0-11.0) th/mm3 RBC 3.16 L 3.23 L 3.39 L (4.50-5.90) mil/mm3 Hgb 8.6 L D 8.8 L 9.3 L (13.0-17.0) gm/dL Hct 26.7 L 26.7 L 28.6 L (39.0-51.0) % Plt Count 142 L 148 L 145 L (150-450) th/mm3 Neut # (Auto) 4.6 6.8 (1.8-7.7) th/mm3 Lymph # (Auto) 1.8 0.6 L (1.0-4.8) th/mm3 [place] # (Auto) 0.7 0.2 (0.0-0.9) th/mm3 Eos # (Auto) 0.0 0.0 (0.0-0.4) th/mm3 Baso # (Auto) 0.0 0.0 (0.0-0.2) th/mm3 Comprehensive Metabolic Panel 12/11/17 12/11/17 12/12/17 Range/Units 06:27 18:48 03:37 Sodium 140 140 141 (136-145) meq/L Potassium 3.8 4.0 4.6 (3.5-5.1) meq/L Chloride 98 101 101 (98-107) meq/L Carbon Dioxide 32.3 H 32.7 H 30.0 (21.0-32.0) meq/L BUN 34 H 29 H 33 H (7-18) mg/dL Creatinine 0.85 0.72 0.91 (0.60-1.30) mg/dL Calcium 7.8 L 7.5 L 7.5 L (8.5-10.1) mg/dL AST 32 (15-37) U/L ALT 45 (12-78) U/L Alkaline Phosphatase 76 (45-117) U/L Total Protein 5.1 L D (6.4-8.2) g/dL Albumin 2.2 L (3.4-5.0) g/dL Intake and Output 12/11/17 12/12/17 12/12/17 22:59 06:59 14:59 Intake Total 1300 / 1300 1600 / 1600 Output Total 100 / 100 Balance 1200 / 1200 1600 / 1600 Intake: IV 1100 / 1100 NS + KCl 20 mEq Inj 1,000 ML @ 1000 / 1000 100 mls/hr IV.CONT .Q10H MATTHEW Rx #:[id number] Ancef 1 GM Premix Inj 1 gm In 100 / 100 50 ml @ 100 mls/hr IV.SIG Q8H MATTHEW Rx#:[id number] Oral 500 / 500 Anesthesia Amount 1300 / 1300 Output: Estimated Blood Loss 100 / 100 Other: # Incontinent Voids 1 Date of Last Bowel Movement 12/10/17 12/12/17 # Incontinent Bowel Movements 1 Weight 60.6 kg - Imaging and Cardiology Imaging: Impressions Lumbar Spine X-Ray 12/11/17 00:00 CONCLUSION: Limited localization study. Chest X-Ray 12/12/17 00:00 CONCLUSION: Minimal bibasilar subsegmental atelectasis. No acute cardiopulmonary disease. Assessment and Plan - Assessment (1) Spinal stenosis of lumbar region Code(s): M48.061 - Spinal stenosis, lumbar region without neurogenic claudication Status: Chronic (2) Unable to ambulate Code(s): R26.2 - Difficulty in walking, not elsewhere classified Status: Chronic (3) Diabetes Code(s): E11.9 - Type 2 diabetes mellitus without complications Status: Acute (4) A-fib Code(s): I48.91 - Unspecified atrial fibrillation Status: Acute (5) HTN (hypertension) Code(s): I10 - Essential (primary) hypertension Status: Acute (6) Hyperlipidemia Code(s): E78.5 - Hyperlipidemia, unspecified Status: Acute (7) COPD (chronic obstructive pulmonary disease) Code(s): J44.9 - Chronic obstructive pulmonary disease, unspecified Status: Acute - Plan Patient had back surgery yesterday, denies any pain. He is slightly confused and unaware that he had surgery. No evidence of angina or CHF exacerbation. Continue with current cardiac treatment plan. We will continue to monitor during his hospitalization. The patient was seen and evaluated by Dr. Holder who participated in care, management and decision-making. - Attending Attestation Patient seen and examined. I reviewed and agree with the evaluation and plan as presented. He tolerated the surgery well. No new cardiac issues. Continue monitoring. (1) Spinal stenosis of lumbar region Qualifiers: Neurogenic claudication status: with neurogenic claudication Qualified Code(s ): M48.062 - Spinal stenosis, lumbar region with neurogenic claudication
--- NOTE | 2017-12-12 19:55 | P.PN ---
Subjective Interval history: S/P lumbar laminectomy L3 L4. he is having minimal pain. Able to move his feet now. On Nebs PRN and Symbicort/ Prednisone No wheezing. Physical Exam Vital signs: Vital Signs 12/11/17 20:00 12/11/17 21:00 12/11/17 21:53 Temperature 97.3 F L Pulse Rate 60 85 Respiratory Rate 18 16 20 Blood Pressure 143/70 H Pulse Oximetry 95 100 12/12/17 00:00 12/12/17 04:00 12/12/17 08:00 Temperature 97.2 F L 97.5 F L 97.3 F L Pulse Rate 63 64 73 Respiratory Rate 18 18 18 Blood Pressure 116/63 129/68 120/68 Pulse Oximetry 95 98 99 12/12/17 12:00 12/12/17 16:00 12/12/17 18:25 Temperature 97.5 F L 97.8 F Pulse Rate 68 82 Respiratory Rate 18 18 Blood Pressure 107/62 144/80 H Pulse Oximetry 96 93 L 97 Intake & Output 12/12/17 12/12/17 12/13/17 06:59 18:59 06:59 Intake Total 1600 / 1600 700 / 700 Balance 1600 / 1600 700 / 700 Weight 60.6 kg Intake: IV 1100 / 1100 NS + KCl 20 mEq Inj 1,000 ML @ 1000 / 1000 100 mls/hr IV.CONT .Q10H ALHAJI Rx #:[id number] Ancef 1 GM Premix Inj 1 gm In 100 / 100 50 ml @ 100 mls/hr IV.SIG Q8H ALHAJI Rx#:[id number] Oral 500 / 500 700 / 700 Other: # Incontinent Voids 1 4 Date of Last Bowel Movement 12/12/17 # Bowel Movements 0 # Incontinent Bowel Movements 1 Narrative: General: Elderly male ,Sitting up in bed, eating, no distress HEENT: Normocephalic, no conjunctivitis, no nasal discharge Neck: Supple CV: RRR, no murmurs, rubs, or gallops Lungs: Clear with no wheezing, rales, or rhonchi Abdomen: Soft, nontender, nondistended, normal bowel sounds Ext: Able to lift both legs and has atrophy of of lower extremity muscles, sensation is in tact. Significant arthritis of both hands with associated bony deformities. Neuro: Awake, alert, oriented, no distress Results - Labs CBC & Chem 7: 12/12/17 03:37 12/12/17 03:37 Laboratory Results - last 24 hr 12/11/17 12/12/17 12/12/17 22:07 03:37 03:37 WBC 7.6 RBC 3.39 L Hgb 9.3 L Hct 28.6 L MCV 84.4 MCH 27.5 MCHC 32.6 RDW 21.7 H Plt Count 145 L MPV 8.3 Neut % (Auto) 88.9 H Lymph % (Auto) 7.8 L [place] % (Auto) 3.2 Eos % (Auto) 0.0 Baso % (Auto) 0.1 Neut # (Auto) 6.8 Lymph # (Auto) 0.6 L [place] # (Auto) 0.2 Eos # (Auto) 0.0 Baso # (Auto) 0.0 WBC Differential . Differential Comment Auto diff final Sodium 141 Potassium 4.6 Chloride 101 Carbon Dioxide 30.0 Anion Gap 10 BUN 33 H Creatinine 0.91 Estimated GFR 81 L POC Glucose 162 H Random Glucose 148 H Calcium 7.5 L 12/12/17 08:29 WBC RBC Hgb Hct MCV MCH MCHC RDW Plt Count MPV Neut % (Auto) Lymph % (Auto) [place] % (Auto) Eos % (Auto) Baso % (Auto) Neut # (Auto) Lymph # (Auto) [place] # (Auto) Eos # (Auto) Baso # (Auto) WBC Differential Differential Comment Sodium Potassium Chloride Carbon Dioxide Anion Gap BUN Creatinine Estimated GFR POC Glucose 151 H Random Glucose Calcium - Imaging Impressions Chest X-Ray 12/12/17 00:00 CONCLUSION: Minimal bibasilar subsegmental atelectasis. No acute cardiopulmonary disease. Assessment and Plan - Assessment (1) Asthma Code(s): J45.909 - Unspecified asthma, uncomplicated Status: Acute (2) Spinal stenosis of lumbar region Code(s): M48.061 - Spinal stenosis, lumbar region without neurogenic claudication Status: Chronic (3) Unable to ambulate Code(s): R26.2 - Difficulty in walking, not elsewhere classified Status: Chronic (4) Diabetes Code(s): E11.9 - Type 2 diabetes mellitus without complications Status: Acute (5) A-fib Code(s): I48.91 - Unspecified atrial fibrillation Status: Acute (6) HTN (hypertension) Code(s): I10 - Essential (primary) hypertension Status: Acute (7) Hyperlipidemia Code(s): E78.5 - Hyperlipidemia, unspecified Status: Acute (8) COPD (chronic obstructive pulmonary disease) Code(s): J44.9 - Chronic obstructive pulmonary disease, unspecified Status: Acute (9) Nutrition, metabolism, and development symptoms Code(s): R63.8 - Other symptoms and signs concerning food and fluid intake Status: Acute (10) GERD (gastroesophageal reflux disease) Code(s): K21.9 - Gastro-esophageal reflux disease without esophagitis Status: Acute (11) Paraparesis of both lower limbs Code(s): G82.20 - Paraplegia, unspecified Status: Chronic - Plan 1. O2 2 L N/C PRN 2. Cont prednisone 15 mg daily. 3. Duoneb nebs qid .PRN 4. symbicort 160/4.5 mcg , 2 puffs BID 5. PT evaluation. (2) Spinal stenosis of lumbar region Qualifiers: Neurogenic claudication status: with neurogenic claudication Qualified Code(s ): M48.062 - Spinal stenosis, lumbar region with neurogenic claudication
[2017-12-12 21:53] LABS: Bilirubin,Urine Negative (Negative); Clarity,Urine Clear (Clear); Color,Urine Yellow (Yellw/Straw); Glucose,Urine (UA) Negative (Negative); Leukocyte Esterase,Urine Negative (Negative); Nitrite,Urine Negative (Negative); Specific Gravity,Urine 1.011 (1.002-1.035); Squamous Epithelial Cell,Urine 1 /hpf (0-5)
[2017-12-13] MEDS: predniSONE 5 MG Tablet PO SCH (08:32)
[2017-12-13] MEDS: Pantoprazole Sodium 20 MG DR Tablet PO SCH (08:32)
[2017-12-13] MEDS: Senna/Docusate Sodium 8.6/50 MG Tablet PO SCH ×2 (08:32→21:20)
[2017-12-13] MEDS: oxyCODONE 10 MG Controlled Release Tablet PO SCH ×2 (08:32→21:21)
[2017-12-13] MEDS: Mirtazapine 15 MG Tablet PO SCH (08:32)
[2017-12-13] MEDS: Amiodarone 200 MG Tablet PO SCH (08:33)
[2017-12-13] MEDS: Insulin NovoLOG Aspart Correctional Sugar Inj SQ SCH ×4 (08:33→21:34)
[2017-12-13] MEDS: Sodium Chloride 0.9% 2 ML Flush BID IV.FLUSH SCH ×2 (08:34→21:23)
[2017-12-13] MEDS: Budesonide-Formoterol 80/4.5 MCG 6.9 GM Inhaler INH SCH ×2 (08:34→21:24)
[2017-12-13] MEDS: Metoprolol Tartrate 50 MG Tablet PO SCH ×2 (08:34→21:21)
[2017-12-13 09:21] LABS: Hematocrit 24.6 % (39.0-51.0); Hemoglobin 8.2 gm/dL (13.0-17.0); Mean Corpuscular HGB Conc 33.5 % (32.0-36.0); Mean Corpuscular Hemoglobin 27.9 pg (27.0-34.0); Mean Corpuscular Volume 83.2 fL (80.0-100.0); Mean Platelet Volume 8.2 fL (7.0-11.0); Platelet Count 141 th/mm3 (150-450); Red Blood Count 2.95 mil/mm3 (4.50-5.90); Red Cell Distribution Width 21.7 % (11.6-17.2); White Blood Count 9.7 th/mm3 (4.0-11.0)
[2017-12-13 09:52] LABS: Calcium 7.3 mg/dL (8.5-10.1); Carbon Dioxide 29.4 meq/L (21.0-32.0); Potassium 3.8 meq/L (3.5-5.1)
--- NOTE | 2017-12-13 11:10 | P.PNFP ---
Subjective Interval history: Patient was seen at bedside this morning, along with his . Patient reports overall feeling well. He does say that he does experience some pain on and surrounding the incision on his back but overall feels about a 3 out of 10 of pain. Both the patient and his feel like the patient is improving and slowly regaining function and strength in his lower extremities. During the visit the patient's asked about the plan to get the patient into rehabilitation. After speaking with case management it was confirmed and then discussed with the family that the patient will be going to [facility]. Patient denies any subjective fevers, chills, shortness of breath, chest pain, nausea, or vomiting. All questions were answered to the patient's satisfaction. <Chemo Abdi O - 12/13/17 15:00> Results - Labs Result diagrams: 12/13/17 08:10 12/13/17 08:10 <Arturo Marcus L - 12/14/17 14:55> Abnormal lab results 12/13/17 12/14/17 Range/Units 21:20 12:51 POC Glucose 210 H 372 H (68-110) mg/dl <Arturo Marcus - 12/14/17 14:55> Abnormal lab results 12/12/17 12/13/17 12/13/17 Range/Units 21:41 08:10 08:10 RBC 2.95 L (4.50-5.90) mil/mm3 Hgb 8.2 L (13.0-17.0) gm/dL Hct 24.6 L (39.0-51.0) % RDW 21.7 H (11.6-17.2) % Plt Count 141 L (150-450) th/mm3 BUN 36 H (7-18) mg/dL Estimated GFR 87 L (>89) mL/min POC Glucose 215 H (68-110) mg/dl Random Glucose 166 H (74-106) mg/dL Calcium 7.3 L* (8.5-10.1) mg/dL Total Protein 5.0 L (6.4-8.2) g/dL Short CBC 12/13/17 Range/Units 08:10 WBC 9.7 (4.0-11.0) th/mm3 Hgb 8.2 L (13.0-17.0) gm/dL Hct 24.6 L (39.0-51.0) % Plt Count 141 L (150-450) th/mm3 BMP 12/13/17 08:10 Sodium 140 Potassium 3.8 D Chloride 103 Carbon Dioxide 29.4 BUN 36 H Creatinine 0.85 Calcium 7.3 L* Urine 12/12/17 Range/Units 21:10 Urine Color Yellow (Yellw/Straw) Urine Clarity Clear (Clear) Urine pH 7.0 (5.0-8.5) Ur Specific [place] 1.011 (1.002-1.035) Urine Protein Negative (Neg-Trace) mg/dL Urine Glucose (UA) Negative (Negative) mg/dL <Chemo Abdi O - 12/13/17 11:10> Physical Exam Vital signs: Vital Signs 12/13/17 16:00 12/13/17 20:00 12/14/17 00:00 Temperature 98.0 F 97.7 F 97.5 F L Pulse Rate 61 61 60 Respiratory Rate 14 16 16 Blood Pressure 153/74 H 140/75 173/94 H Pulse Oximetry 98 98 97 12/14/17 01:00 12/14/17 02:02 12/14/17 04:00 Temperature 97.6 F Pulse Rate 59 L Respiratory Rate 18 16 Blood Pressure 173/84 H 142/75 H Pulse Oximetry 98 12/14/17 08:00 12/14/17 09:17 12/14/17 12:00 Temperature 97.2 F L 97.8 F Pulse Rate 58 L 62 58 L Respiratory Rate 16 18 16 Blood Pressure 144/81 H 131/76 Pulse Oximetry 96 93 L 97 Intake & Output 12/13/17 12/14/17 12/14/17 18:59 06:59 18:59 Intake Total 1320 / 1320 Output Total 150 / 150 226 / 226 Balance 1170 / 1170 -226 / -226 Weight 58.3 kg Intake: Oral 1320 / 1320 Output: Urine 150 / 150 226 / 226 Other: # Voids 4 1 # Incontinent Voids 6 1 1 # Urine Diapers 1 Date of Last Bowel Movement 12/10/17 12/14/17 # Bowel Movements 2 1 # Incontinent Bowel Movements 4 <Arturo Marcus L - 12/14/17 14:55> Vital Signs 12/12/17 12:00 12/12/17 16:00 12/12/17 18:25 Temperature 97.5 F L 97.8 F Pulse Rate 68 82 Respiratory Rate 18 18 Blood Pressure 107/62 144/80 H Pulse Oximetry 96 93 L 97 12/12/17 19:55 12/12/17 20:00 12/13/17 00:00 Temperature 98.2 F 98.1 F Pulse Rate 76 82 Respiratory Rate 18 18 Blood Pressure 130/76 115/71 Pulse Oximetry 97 99 97 12/13/17 04:00 12/13/17 08:00 Temperature 97.3 F L 97.7 F Pulse Rate 75 63 Respiratory Rate 18 12 Blood Pressure 152/83 H 156/85 H Pulse Oximetry 95 98 Intake & Output 12/12/17 12/13/17 12/13/17 18:59 06:59 18:59 Intake Total 700 / 700 Output Total 800 / 800 Balance 700 / 700 -800 / -800 Weight 60.2 kg Intake: Oral 700 / 700 Output: Urine 800 / 800 Other: # Voids 1 # Incontinent Voids 4 1 Date of Last Bowel Movement 12/10/17 12/10/17 # Bowel Movements 0 <Chemo Abdi - 12/13/17 11:10> Narrative: General: Sitting up in bed, pleasant and in no acute distress HEENT: Normocephalic, no conjunctivitis, no nasal discharge Neck: Supple CV: Irregularly irregular, no acute events on telemetry Lungs: CTAB, decreased air movement, no wheezing, rales, or rhonchi Abdomen: Soft, nontender, nondistended, normal bowel sounds Ext: Able to lift both legs against gravity plus mild extra resistance, atrophy of of lower extremity muscles, sensation is in tact. Significant arthritis of both hands with associated bony deformities. Surgical incision on back is clean without signs of infection or debris. Neuro: Awake, alert, oriented, no distress <Chemo Abdi 12/13/17 15:00> Assessment and Plan - Assessment (1) Spinal stenosis of lumbar region Code(s): M48.061 - Spinal stenosis, lumbar region without neurogenic claudication Status: Chronic (2) Diabetes Code(s): E11.9 - Type 2 diabetes mellitus without complications Status: Acute (3) A-fib Code(s): I48.91 - Unspecified atrial fibrillation Status: Acute (4) HTN (hypertension) Code(s): I10 - Essential (primary) hypertension Status: Acute (5) Hyperlipidemia Code(s): E78.5 - Hyperlipidemia, unspecified Status: Acute (6) COPD (chronic obstructive pulmonary disease) Code(s): J44.9 - Chronic obstructive pulmonary disease, unspecified Status: Acute (7) GERD (gastroesophageal reflux disease) Code(s): K21.9 - Gastro-esophageal reflux disease without esophagitis Status: Acute (8) Nutrition, metabolism, and development symptoms Code(s): R63.8 - Other symptoms and signs concerning food and fluid intake Status: Acute <Arturo Marcus - 12/14/17 14:55> (1) Spinal stenosis of lumbar region Code(s): M48.061 - Spinal stenosis, lumbar region without neurogenic claudication Status: Chronic Plan: 77-year-old male with history of A.fib, hypertension, type 2 diabetes, COPD, CHF , rheumatoid arthritis, severe spinal stenosis sent to the ED from assisted living by for worsening lower extremity weakness and inability to ambulate. Now S/P day 2 after laminectomy L2-L3. Hgb and electrolytes, vital signs normal after surgery. - Neurosurgery on board - Patient has been accepted at [facility] - Pain management: oxycodone 10 mg q12hrs scheduled, Percocet 5/325 1 tab q4hrs pain 1-5, Percocet 5/325 2 tabs q4hrs pain 6 to 10, orphenadrine 100 mg bid for muscle spasms (2) Diabetes Code(s): E11.9 - Type 2 diabetes mellitus without complications Status: Acute Plan: Held home metformin and Humalog Accu-Cheks Hypoglycemia protocol in place Low-dose sliding scale (3) A-fib Code(s): I48.91 - Unspecified atrial fibrillation Status: Acute Plan: Continue home amiodarone 200 mg daily and metoprolol Patient is not on anticoagulation at home, will discuss with family (4) HTN (hypertension) Code(s): I10 - Essential (primary) hypertension Status: Acute Plan: Continue home Entresto (5) Hyperlipidemia Code(s): E78.5 - Hyperlipidemia, unspecified Status: Acute Plan: Continue home atorvastatin (6) COPD (chronic obstructive pulmonary disease) Code(s): J44.9 - Chronic obstructive pulmonary disease, unspecified Status: Acute Plan: Duoneb as needed Continue home symbicort and prednisone (7) GERD (gastroesophageal reflux disease) Code(s): K21.9 - Gastro-esophageal reflux disease without esophagitis Status: Acute Plan: Continue home protonix (8) Nutrition, metabolism, and development symptoms Code(s): R63.8 - Other symptoms and signs concerning food and fluid intake Status: Acute Plan: Fluids: PO Diet: diabetic diet vitals q4h, cardiac telemetry, monitor I & Os DVT ppx: SCDs <Chemo Abdi O - 12/13/17 15:51> - Attending Attestation The exam, history, and the medical decision-making described in the above note were completed with the assistance of the resident physician. I reviewed and agree with the findings presented. I attest that I discussed and evaluated the patient with the resident. He will need to be on anticoagulation once cleared by neurosurgery. [facility] <Arturo Marcus - 12/14/17 14:55> <Chemo Abdi O - Last Filed: 12/13/17 15:51> (1) Spinal stenosis of lumbar region Qualifiers: Neurogenic claudication status: with neurogenic claudication Qualified Code(s ): M48.062 - Spinal stenosis, lumbar region with neurogenic claudication <Arturo Marcus - Last Filed: 12/14/17 14:55> (1) Spinal stenosis of lumbar region Qualifiers: Neurogenic claudication status: with neurogenic claudication Qualified Code(s ): M48.062 - Spinal stenosis, lumbar region with neurogenic claudication <Chemo Abdi O - Last Filed: 12/13/17 15:51> (1) Spinal stenosis of lumbar region Qualifiers: Neurogenic claudication status: with neurogenic claudication Qualified Code(s ): M48.062 - Spinal stenosis, lumbar region with neurogenic claudication <Arturo Marcus L - Last Filed: 12/14/17 14:55> (1) Spinal stenosis of lumbar region Qualifiers: Neurogenic claudication status: with neurogenic claudication Qualified Code(s ): M48.062 - Spinal stenosis, lumbar region with neurogenic claudication
--- NOTE | 2017-12-13 11:11 | P.PNNS ---
Subjective Interval history: Did well overnight. Weakness slightly improving. Feels burning on urination. Physical Exam Vital signs: Vital Signs 12/12/17 12:00 12/12/17 16:00 12/12/17 18:25 Temperature 97.5 F L 97.8 F Pulse Rate 68 82 Respiratory Rate 18 18 Blood Pressure 107/62 144/80 H Pulse Oximetry 96 93 L 97 12/12/17 19:55 12/12/17 20:00 12/13/17 00:00 Temperature 98.2 F 98.1 F Pulse Rate 76 82 Respiratory Rate 18 18 Blood Pressure 130/76 115/71 Pulse Oximetry 97 99 97 12/13/17 04:00 12/13/17 08:00 Temperature 97.3 F L 97.7 F Pulse Rate 75 63 Respiratory Rate 18 12 Blood Pressure 152/83 H 156/85 H Pulse Oximetry 95 98 Intake & Output 12/12/17 12/13/17 12/13/17 18:59 06:59 18:59 Intake Total 700 / 700 Output Total 800 / 800 Balance 700 / 700 -800 / -800 Weight 60.2 kg Intake: Oral 700 / 700 Output: Urine 800 / 800 Other: # Voids 1 # Incontinent Voids 4 1 Date of Last Bowel Movement 12/10/17 12/10/17 # Bowel Movements 0 Narrative: A&O x 3 CN II - XII intact Motor 5/5 UE LE: 1/5 ip, q, ham, 2/5 TA/gas/EHL intact sensation incontinent of urine Assessment and Plan - Assessment (1) Paraparesis of both lower limbs Code(s): G82.20 - Paraplegia, unspecified Status: Chronic (2) Spinal stenosis of lumbar region Code(s): M48.061 - Spinal stenosis, lumbar region without neurogenic claudication Status: Chronic Qualifiers: Qualified Code(s): M48.062 - Spinal stenosis, lumbar region with neurogenic claudication (3) Unable to ambulate Code(s): R26.2 - Difficulty in walking, not elsewhere classified Status: Chronic - Plan A: 77-year-old gentleman with severe paraparesis near plegia for the past 2 months although symptoms have been ongoing for the past 6 months. He also has generalized atrophy involving the upper and lower extremities which is chronic related to steroid use and medications for his rheumatoid arthritis. The more recent finding is severe paraparesis in the lower extremities with an inability to stand or walk with a 1/5 movement although he denies incontinence and has sensation in his legs. He has a severe L2-3 spinal stenosis from combination of facet and ligamentum flavum hypertrophy along with a large disc herniation lesser degree of stenosis at L1-2 levels. S/p L2/L3 decompressive laminectomy with medical facetectomy and microdiscectomy on 12/12/17. P: Continue with rehab efforts. Will f/u (*check another UA) given urinary burning Would benefit from PT over the weekend as he seems to be improving and could possibly be a rehab candidate next week
--- NOTE | 2017-12-13 11:49 | P.DS ---
Date of admission: 12/10/17 10:40 Primary care physician: UNKNOWN Brief History from admission: 77-year-old male with history of A.fib, hypertension, type 2 diabetes, COPD, CHF , rheumatoid arthritis, severe spinal stenosis sent to the ED from assisted living by for worsening lower extremity weakness and inability to ambulate. and [id number] at bedside. Most of the history provided by . Patient initially started having back pain about 3-4 months ago. Family thought it was due to arthritis. However, patient's legs started becoming weak. Reports that patient was hospitalized about 1 month ago at another hospital. MRI demonstrated severe spinal stenosis. states that they were not ready to undergo surgery at that time and wanted to try therapy. Patient was in therapy at [facility] for at least 2 weeks. Reports that patient was not improving with therapy and now would like to consider surgery. Denies incontinence, difficulty with urination/ defecation, saddle anesthesia, nausea vomiting, chest pain, shortness of breath, and abdominal pain. PMH: A.fib, COPD, HTN, T2DM, CHF, RA, PSH: Bilateral knee replacement 2004. Allergies: Aspirin induces asthma attack, sulfides FH: Mom passed at 74 from [place], Father passed 75 from lung disease secondary to smoking, 2 kids healthy. Social: Lives at [facility] never smoking, never drinker. 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 Code: Full Code PCP, Dr. Craig DS: Diagnosis - Discharge Diagnosis (1) Spinal stenosis of lumbar region Status: Chronic (2) Diabetes Status: Acute (3) A-fib Status: Acute (4) HTN (hypertension) Status: Acute (5) Hyperlipidemia Status: Acute (6) COPD (chronic obstructive pulmonary disease) Status: Acute (7) GERD (gastroesophageal reflux disease) Status: Acute (8) Nutrition, metabolism, and development symptoms Status: Acute DS: Summary Hospital Course: This patient is a 77-year-old male with history of A.fib, hypertension, type 2 diabetes, COPD, CHF, rheumatoid arthritis, severe spinal stenosis who was admitted for emergent L2-L3 laminectomy after being sent to the ED from assisted living by for worsening lower extremity weakness and inability to ambulate. Upon arrival to [place] patient was consulted by neurology who recommended L1-L3 laminectomy with L2-3 microdiscectomy. Patient was then cleared by bacteriology technician Dr. Leyva and agricultural sales representative Dr. Arredondo. Patient then underwent laminectomy on 12/11/17 without complication. After the days following surgery patient was noticeably stronger and lower extremities with more range of motion. On 12/13/17 patient was discharged to [facility] for PT and OT therapy. The rest the patient's hospital course was uneventful. - Time Spent with Patient Total time spent providing and/or coordinating discharge services: Greater than 30 minutes - Quality: VTE Deep Vein Thrombosis/Pulmonary Embolism Present on Admission: No Exam Vital signs: Vital Signs 12/12/17 12:00 12/12/17 16:00 12/12/17 18:25 Temperature 97.5 F L 97.8 F Pulse Rate 68 82 Respiratory Rate 18 18 Blood Pressure 107/62 144/80 H Pulse Oximetry 96 93 L 97 12/12/17 19:55 12/12/17 20:00 12/13/17 00:00 Temperature 98.2 F 98.1 F Pulse Rate 76 82 Respiratory Rate 18 18 Blood Pressure 130/76 115/71 Pulse Oximetry 97 99 97 12/13/17 04:00 12/13/17 08:00 Temperature 97.3 F L 97.7 F Pulse Rate 75 63 Respiratory Rate 18 12 Blood Pressure 152/83 H 156/85 H Pulse Oximetry 95 98 Intake & Output 12/12/17 12/13/17 12/13/17 18:59 06:59 18:59 Intake Total 700 / 700 Output Total 800 / 800 Balance 700 / 700 -800 / -800 Weight 60.2 kg Intake: Oral 700 / 700 Output: Urine 800 / 800 Other: # Voids 1 # Incontinent Voids 4 1 Date of Last Bowel Movement 12/10/17 12/10/17 # Bowel Movements 0 Narrative: General: Sitting up in bed, pleasant and in no acute distress HEENT: Normocephalic, no conjunctivitis, no nasal discharge Neck: Supple CV: Irregularly irregular, no acute events on telemetry Lungs: CTAB, decreased air movement, no wheezing, rales, or rhonchi Abdomen: Soft, nontender, nondistended, normal bowel sounds Ext: Able to lift both legs against gravity plus mild extra resistance, atrophy of of lower extremity muscles, sensation is in tact. Significant arthritis of both hands with associated bony deformities. Surgical incision on back is clean without signs of infection or debris. Neuro: Awake, alert, oriented, no distress Results Procedures completed during hospitalization: Patient underwent lumbar L2 and L3 decompressive laminectomy with medial facetectomy and microdiscectomy on December 11, 2017. Neurosurgeon was Dr. Enio Merritt. Labs on day of discharge: Labs from last 24 hours 12/13/17 12/13/17 12/12/17 08:10 08:10 21:41 WBC 9.7 RBC 2.95 L Hgb 8.2 L Hct 24.6 L MCV 83.2 MCH 27.9 MCHC 33.5 RDW 21.7 H Plt Count 141 L MPV 8.2 Sodium 140 Potassium 3.8 D Chloride 103 Carbon Dioxide 29.4 Anion Gap 8 BUN 36 H Creatinine 0.85 Estimated GFR 87 L POC Glucose 215 H Random Glucose 166 H Calcium 7.3 L* Prot Corrected Calcium 8.5 Total Protein 5.0 L Urine Color Urine Clarity Urine pH Ur Specific [place] Urine Protein Urine Glucose (UA) Urine Ketones Urine Occult Blood Urine Nitrate Urine Bilirubin Urine Urobilinogen Ur Leukocyte Esterase Ur Squamous Epith Cells Micro UA Comment Ur Microscopic Review Urine Culture Comments 12/12/17 21:10 WBC RBC Hgb Hct MCV MCH MCHC RDW Plt Count MPV Sodium Potassium Chloride Carbon Dioxide Anion Gap BUN Creatinine Estimated GFR POC Glucose Random Glucose Calcium Prot Corrected Calcium Total Protein Urine Color Yellow Urine Clarity Clear Urine pH 7.0 Ur Specific [place] 1.011 Urine Protein Negative Urine Glucose (UA) Negative Urine Ketones Negative Urine Occult Blood Negative Urine Nitrate Negative Urine Bilirubin Negative Urine Urobilinogen Less than 2 Ur Leukocyte Esterase Negative Ur Squamous Epith Cells 1 Micro UA Comment Culture not ind Ur Microscopic Review Not Reportable Urine Culture Comments Culture not ind - Impressions ITS Impressions Lumbar Spine X-Ray 12/11/17 00:00 CONCLUSION: Limited localization study. Chest X-Ray 12/12/17 00:00 CONCLUSION: Minimal bibasilar subsegmental atelectasis. No acute cardiopulmonary disease. Discharge Plan - Discharge Disposition Patient Disposition: 62 Rehab Inpatient - Discharge Condition Condition: Stable - Discharge Order Discharge Orders: Discharge Order (Routine); Ordered 12/13/17 Ordered By: Chemo Abdi - Physicians Team Primary Care Provider: UNKNOWN, Attending Provider: Arturo Marcus Other Providers: Susanne Holder MD ; Enio Merritt MD ; Colton Arredondo MD
--- NOTE | 2017-12-13 15:07 | P.PNCA ---
Subjective Interval history: Patient denies any CP, pressure, palpitations, dizziness, edema or SOB. Patient states he is feeling a little better. PT/OT in room working with patient at this time. Medications and Allergies Allergies Allergy/AdvReac Type Severity Reaction Status Date / Time Sulfa (Sulfonamide Allergy Mild Burning Verified 12/10/17 09:46 Antibiotics) aspirin Allergy Bleeding Verified 12/10/17 10:22 Home Medications Medication Instructions Recorded Confirmed Type amiodarone 200 mg PO DAILY 12/10/17 12/10/17 History atorvastatin 20 mg PO DAILY 12/10/17 12/10/17 History budesonide-formoterol [Symbicort] 2 puff INHALATION BID 12/10/17 12/10/17 History bumetanide 0.5 mg PO DAILY 12/10/17 12/10/17 History insulin lispro [Humalog KwikPen 20 unit SUBCUT BID 12/10/17 12/10/17 History Insulin] melatonin 3 mg PO HS PRN 12/10/17 12/10/17 History metformin 500 mg PO BID 12/10/17 12/10/17 History metoprolol tartrate 50 mg PO BID 12/10/17 12/10/17 History mirtazapine 15 mg PO DAILY 12/10/17 12/10/17 History nitroglycerin [Nitrostat] 0.4 mg SUBLINGUAL Q5-15M PRN 12/10/17 12/10/17 History omeprazole 20 mg PO DAILY 12/10/17 12/10/17 History orphenadrine citrate 100 mg PO BID 12/10/17 12/10/17 History oxycodone 10 mg PO Q12H 12/10/17 12/10/17 History oxycodone-acetaminophen 1 tab PO Q4HR PRN 12/10/17 12/10/17 History prednisone 15 mg PO DAILY 12/10/17 12/10/17 History sacubitril-valsartan [Entresto] 1 tab PO BID 12/10/17 12/10/17 History terbinafine HCl 1 applic TOPICAL BID 12/10/17 12/10/17 History Active Medications: Active Medications Acetaminophen (Tylenol) 650 mg PO Q4H PRN PRN Reason: TEMPERATURE > 101.5 F Al Hydrox/Mg Hydrox/Simethicone (Mag-Al Plus Susp Liq) 30 ml PO Q6H PRN PRN Reason: DYSPEPSIA Al Hydroxide/Mg Hydroxide (Milk Of Magnesia Liq) 30 ml PO Q12H PRN PRN Reason: Mild Constipation Albuterol (Duoneb Neb (Matthew)) 1 ampul NEB Q8HR ALT NEB [facility] Last Admin: 12/13/17 11:20 Dose: Not Given Amiodarone HCl (Cordarone) 200 mg PO DAILY [facility] Last Admin: 12/13/17 08:33 Dose: 200 mg Atorvastatin Calcium (Lipitor) 20 mg PO DAILY [facility] Last Admin: 12/13/17 08:34 Dose: 20 mg Bisacodyl (Dulcolax Supp) 10 mg RECTAL DAILY PRN PRN Reason: SEVERE CONSITIPATION Last Admin: 12/13/17 13:30 Dose: 10 mg Budesonide/Formoterol Fumarate (Symbicort 80/4.5 Mcg Inh) 2 puff INH BID [facility] Last Admin: 12/13/17 08:34 Dose: 2 puff Bumetanide (Bumex) 0.5 mg PO DAILY [facility] Last Admin: 12/13/17 08:33 Dose: 0.5 mg Clonidine HCl (Catapres) 0.1 mg NG/OG Q6H PRN PRN Reason: SYS BP GREATER THAN 170 MMHG Dextrose (D50w Vial) 50 ml IV.PUSH UNSCH PRN PRN Reason: PER HYPOGLYCEMIA PROTOCOL Glucagon (Glucagon Inj) 1 mg OTHER PRN PRN PRN Reason: for Hypoglycemia Protocol Calcium Gluconate 1 gm/ Sodium (Chloride) 110 mls @ 110 mls/hr IV.SIG UNSCH PRN PRN Reason: SEE LABEL COMMENTS Magnesium Sulfate 2 gm/ Sodium (Chloride) 100 mls @ 100 mls/hr IV.SIG UNSCH PRN PRN Reason: MAGNESIUM LESS THAN 2 Potassium Chloride (Kcl 20 Meq Premix Inj) 20 meq in 100 mls @ 50 mls/hr IV.SIG UNSCH PRN PRN Reason: POTASSIUM LESS THAN 4 Insulin Aspart (Novolog Insulin Correctional Sugar Inj) 0 unit SQ ACHS [facility]; Protocol Last Admin: 12/13/17 12:12 Dose: 5 unit Lactulose (Lactulose Liq) 30 ml PO BID [facility] Last Admin: 12/13/17 08:34 Dose: 30 ml Melatonin (Melatonin) 5 mg PO HS PRN PRN Reason: INSOMNIA Menthol ([place]) 1 lozenge BUCCAL UNSCH PRN PRN Reason: SORE THROAT Metoprolol Tartrate (Lopressor) 50 mg PO BID [facility] Last Admin: 12/13/17 08:34 Dose: 50 mg Mirtazapine (Remeron) 15 mg PO DAILY [facility] Last Admin: 12/13/17 08:32 Dose: 15 mg Morphine Sulfate (Morphine Inj) 4 mg IV.PUSH Q4H PRN PRN Reason: Breakthrough pain Nitroglycerin (Nitrostat Sl (Override)) 0.4 mg SL Q5M PRN PRN Reason: Chest Pain Ondansetron HCl (Zofran Inj) 4 mg IV.PUSH Q6H PRN PRN Reason: NAUSEA OR VOMITING Orphenadrine Citrate (Norflex Cr) 100 mg PO BID [facility] Last Admin: 12/13/17 08:32 Dose: 100 mg Oxycodone HCl (Oxycontin Cr) 10 mg PO Q12H [facility] Last Admin: 12/13/17 08:32 Dose: 10 mg Oxycodone/Acetaminophen (Percocet 5/325 Mg) 1 tab PO Q4H PRN PRN Reason: PAIN SCALE 6 TO 10 Pantoprazole Sodium (Protonix) 20 mg PO DAILY [facility] Last Admin: 12/13/17 08:32 Dose: 20 mg Patient Own Medicationterbinafin e Hcl [Terbinafine Hcl] 1%Cream 0 each TOPICAL BID [facility] Prednisone (Deltasone) 15 mg PO DAILY [facility] Last Admin: 12/13/17 08:32 Dose: 15 mg Promethazine HCl (Phenergan Inj) 25 mg IM Q4H PRN PRN Reason: NAUSEA OR VOMITING Sacubitril/Valsartan (Entresto 24 Mg/26 Mg Tablet) 1 tab PO BID [facility] Last Admin: 12/13/17 08:33 Dose: 1 tab Senna/Docusate Sodium (Leslie-Colace) 1 tab PO BID [facility] Last Admin: 12/13/17 08:32 Dose: 1 tab Sennosides (Senokot) 17.2 mg PO Q12H PRN PRN Reason: Moderate Constipation Last Admin: 12/12/17 10:09 Dose: 17.2 mg Sodium Chloride (Ns Flush) 2 ml IV.FLUSH BID [facility] Last Admin: 12/13/17 08:34 Dose: 2 ml Sodium Chloride (Ns Flush) 2 ml IV.FLUSH PRN PRN PRN Reason: FLUSH AFTER USING IV ACCESS Physical Exam Vital signs: Vital Signs 12/12/17 16:00 12/12/17 18:25 12/12/17 19:55 Temperature 97.8 F Pulse Rate 82 Respiratory Rate 18 Blood Pressure 144/80 H Pulse Oximetry 93 L 97 97 12/12/17 20:00 12/13/17 00:00 12/13/17 04:00 Temperature 98.2 F 98.1 F 97.3 F L Pulse Rate 76 82 75 Respiratory Rate 18 18 18 Blood Pressure 130/76 115/71 152/83 H Pulse Oximetry 99 97 95 12/13/17 08:00 12/13/17 12:00 Temperature 97.7 F 97.5 F L Pulse Rate 63 65 Respiratory Rate 12 14 Blood Pressure 156/85 H 153/80 H Pulse Oximetry 98 98 Intake & Output 12/12/17 12/13/17 12/13/17 18:59 06:59 18:59 Intake Total 700 / 700 Output Total 800 / 800 Balance 700 / 700 -800 / -800 Weight 60.2 kg Intake: Oral 700 / 700 Output: Urine 800 / 800 Other: # Voids 1 # Incontinent Voids 4 1 Date of Last Bowel Movement 12/10/17 12/10/17 # Bowel Movements 0 - Constitutional no acute distress - Routine HEENT Exam Head: Present: normocephalic Eye: Present: PERRL ENT: Present: mucous membranes moist - Routine Neck Exam Present: full ROM - Routine Respiratory Exam Present: CTA bilaterally - Routine Cardiovascular Exam Present: S1, S2. Absent: murmur, gallop - Routine Abdominal Exam Present: normoactive bowel sounds - Routine Extremities Exam Present: full ROM, pulses intact, normal capillary refill. Absent: cyanosis, clubbing, edema - Routine Skin Exam Present: intact - Routine Neurological Exam Present: oriented X3 - Detailed Neurological Exam: Coma Scale Eye Opening: Spontaneous Verbal Response: Oriented Motor Response: Obey commands Lalo Coma Scale Total: 15 - Routine Psychiatric Exam Present: normal affect Results 12/13/17 08:10 12/13/17 08:10 CBC 12/11/17 12/12/17 12/13/17 Range/Units 18:48 03:37 08:10 WBC 7.1 7.6 9.7 (4.0-11.0) th/mm3 RBC 3.23 L 3.39 L 2.95 L (4.50-5.90) mil/mm3 Hgb 8.8 L 9.3 L 8.2 L (13.0-17.0) gm/dL Hct 26.7 L 28.6 L 24.6 L (39.0-51.0) % Plt Count 148 L 145 L 141 L (150-450) th/mm3 Neut # (Auto) 6.8 (1.8-7.7) th/mm3 Lymph # (Auto) 0.6 L (1.0-4.8) th/mm3 [place] # (Auto) 0.2 (0.0-0.9) th/mm3 Eos # (Auto) 0.0 (0.0-0.4) th/mm3 Baso # (Auto) 0.0 (0.0-0.2) th/mm3 Comprehensive Metabolic Panel 12/11/17 12/12/17 12/13/17 Range/Units 18:48 03:37 08:10 Sodium 140 141 140 (136-145) meq/L Potassium 4.0 4.6 3.8 D (3.5-5.1) meq/L Chloride 101 101 103 (98-107) meq/L Carbon Dioxide 32.7 H 30.0 29.4 (21.0-32.0) meq/L BUN 29 H 33 H 36 H (7-18) mg/dL Creatinine 0.72 0.91 0.85 (0.60-1.30) mg/dL Calcium 7.5 L 7.5 L 7.3 L* (8.5-10.1) mg/dL Total Protein 5.0 L (6.4-8.2) g/dL Intake and Output 12/13/17 12/13/17 12/13/17 06:59 14:59 22:59 Output Total 800 / 800 Balance -800 / -800 Output: Urine 800 / 800 Other: # Incontinent Voids 1 Date of Last Bowel Movement 12/10/17 Weight 60.2 kg - Imaging and Cardiology Imaging: Impressions Lumbar Spine X-Ray 12/11/17 00:00 CONCLUSION: Limited localization study. Chest X-Ray 12/12/17 00:00 CONCLUSION: Minimal bibasilar subsegmental atelectasis. No acute cardiopulmonary disease. Assessment and Plan - Assessment (1) Spinal stenosis of lumbar region Code(s): M48.061 - Spinal stenosis, lumbar region without neurogenic claudication Status: Chronic (2) Unable to ambulate Code(s): R26.2 - Difficulty in walking, not elsewhere classified Status: Chronic (3) Diabetes Code(s): E11.9 - Type 2 diabetes mellitus without complications Status: Acute (4) A-fib Code(s): I48.91 - Unspecified atrial fibrillation Status: Acute (5) HTN (hypertension) Code(s): I10 - Essential (primary) hypertension Status: Acute (6) Hyperlipidemia Code(s): E78.5 - Hyperlipidemia, unspecified Status: Acute (7) COPD (chronic obstructive pulmonary disease) Code(s): J44.9 - Chronic obstructive pulmonary disease, unspecified Status: Acute - Plan We will continue with current cardiac treatment plan. Patient is stable post op from a cardiac standpoint, no evidence of chest pain or CHF exacerbation. We will continue to monitor patient during his hospitalization. Transfer to rehab as planned. The patient was seen and evaluated by Dr. Holder who participated in care, management and decision-making. - Attending Attestation Patient seen and examined. I reviewed and agree with the evaluation and plan as presented. Stable post op. Continue current program. Transfer to rehab as planned. D/w pt and family. (1) Spinal stenosis of lumbar region Qualifiers: Neurogenic claudication status: with neurogenic claudication Qualified Code(s ): M48.062 - Spinal stenosis, lumbar region with neurogenic claudication
--- NOTE | 2017-12-13 19:32 | P.PN ---
Subjective Interval history: He is doing well. has been moving his feet. No SOB or wheezing. Off o2 Physical Exam Vital signs: Vital Signs 12/12/17 19:55 12/12/17 20:00 12/13/17 00:00 Temperature 98.2 F 98.1 F Pulse Rate 76 82 Respiratory Rate 18 18 Blood Pressure 130/76 115/71 Pulse Oximetry 97 99 97 12/13/17 04:00 12/13/17 08:00 12/13/17 12:00 Temperature 97.3 F L 97.7 F 97.5 F L Pulse Rate 75 63 65 Respiratory Rate 18 12 14 Blood Pressure 152/83 H 156/85 H 153/80 H Pulse Oximetry 95 98 98 12/13/17 16:00 Temperature 98.0 F Pulse Rate 61 Respiratory Rate 14 Blood Pressure 153/74 H Pulse Oximetry 98 Intake & Output 12/13/17 12/13/17 12/14/17 06:59 18:59 06:59 Intake Total 1320 / 1320 Output Total 800 / 800 150 / 150 Balance -800 / -800 1170 / 1170 Weight 60.2 kg Intake: Oral 1320 / 1320 Output: Urine 800 / 800 150 / 150 Other: # Voids 1 4 # Incontinent Voids 1 6 Date of Last Bowel Movement 12/10/17 12/10/17 # Bowel Movements 2 # Incontinent Bowel Movements 4 Narrative: General: Sitting up in bed, pleasant and in no acute distress HEENT: Normocephalic, no conjunctivitis, no nasal discharge Neck: Supple CV: Irregularly irregular, no acute events on telemetry Lungs: Clear, no wheezing, rales, or rhonchi Abdomen: Soft, nontender, nondistended, normal bowel sounds Ext: Able to lift both legs and has atrophy of of lower extremity muscles, sensation is in tact. Significant arthritis of both hands with associated bony deformities. Neuro: Awake, alert, oriented,with no focal deficits. Results - Labs CBC & Chem 7: 12/13/17 08:10 12/13/17 08:10 Laboratory Results - last 24 hr 12/12/17 12/12/17 12/13/17 21:10 21:41 08:10 WBC 9.7 RBC 2.95 L Hgb 8.2 L Hct 24.6 L MCV 83.2 MCH 27.9 MCHC 33.5 RDW 21.7 H Plt Count 141 L MPV 8.2 Sodium Potassium Chloride Carbon Dioxide Anion Gap BUN Creatinine Estimated GFR POC Glucose 215 H Random Glucose Calcium Prot Corrected Calcium Total Protein Urine Color Yellow Urine Clarity Clear Urine pH 7.0 Ur Specific [place] 1.011 Urine Protein Negative Urine Glucose (UA) Negative Urine Ketones Negative Urine Occult Blood Negative Urine Nitrate Negative Urine Bilirubin Negative Urine Urobilinogen Less than 2 Ur Leukocyte Esterase Negative Ur Squamous Epith Cells 1 Micro UA Comment Culture not ind Ur Microscopic Review Not Reportable Urine Culture Comments Culture not ind 12/13/17 08:10 WBC RBC Hgb Hct MCV MCH MCHC RDW Plt Count MPV Sodium 140 Potassium 3.8 D Chloride 103 Carbon Dioxide 29.4 Anion Gap 8 BUN 36 H Creatinine 0.85 Estimated GFR 87 L POC Glucose Random Glucose 166 H Calcium 7.3 L* Prot Corrected Calcium 8.5 Total Protein 5.0 L Urine Color Urine Clarity Urine pH Ur Specific [place] Urine Protein Urine Glucose (UA) Urine Ketones Urine Occult Blood Urine Nitrate Urine Bilirubin Urine Urobilinogen Ur Leukocyte Esterase Ur Squamous Epith Cells Micro UA Comment Ur Microscopic Review Urine Culture Comments Assessment and Plan - Assessment (1) Asthma Code(s): J45.909 - Unspecified asthma, uncomplicated Status: Acute (2) Spinal stenosis of lumbar region Code(s): M48.061 - Spinal stenosis, lumbar region without neurogenic claudication Status: Chronic (3) Unable to ambulate Code(s): R26.2 - Difficulty in walking, not elsewhere classified Status: Chronic (4) Diabetes Code(s): E11.9 - Type 2 diabetes mellitus without complications Status: Acute (5) A-fib Code(s): I48.91 - Unspecified atrial fibrillation Status: Acute (6) HTN (hypertension) Code(s): I10 - Essential (primary) hypertension Status: Acute (7) Hyperlipidemia Code(s): E78.5 - Hyperlipidemia, unspecified Status: Acute (8) COPD (chronic obstructive pulmonary disease) Code(s): J44.9 - Chronic obstructive pulmonary disease, unspecified Status: Acute (9) Nutrition, metabolism, and development symptoms Code(s): R63.8 - Other symptoms and signs concerning food and fluid intake Status: Acute (10) GERD (gastroesophageal reflux disease) Code(s): K21.9 - Gastro-esophageal reflux disease without esophagitis Status: Acute (11) Paraparesis of both lower limbs Code(s): G82.20 - Paraplegia, unspecified Status: Chronic - Plan 1. O2 2 L N/C PRN 2. Cont prednisone 15 mg daily. 3. Cont Duoneb nebs qid .PRN 4. Symbicort 160/4.5 mcg , 2 puffs BID 5. PT evaluation. 6. To rehab soon. (2) Spinal stenosis of lumbar region Qualifiers: Neurogenic claudication status: with neurogenic claudication Qualified Code(s ): M48.062 - Spinal stenosis, lumbar region with neurogenic claudication
[2017-12-14] MEDS: Insulin NovoLOG Aspart Correctional Sugar Inj SQ SCH ×2 (08:27→12:58)
--- NOTE | 2017-12-14 09:30 | P.PNFP ---
Subjective Interval history: No acute events overnight. Patient doing well this morning. Patient lying in bed and eating breakfast. Patient had a bowel movement this morning. Denies fevers, chest pain, shortness of breath, abdominal pain, and nausea vomiting. <Mariam Rosen T - 12/14/17 09:55> Results - Labs Result diagrams: 12/13/17 08:10 12/13/17 08:10 <Arturo Marcus - 12/15/17 13:38> Abnormal lab results 12/13/17 12/13/17 Range/Units 08:10 21:20 BUN 36 H (7-18) mg/dL Estimated GFR 87 L (>89) mL/min POC Glucose 210 H (68-110) mg/dl Random Glucose 166 H (74-106) mg/dL Calcium 7.3 L* (8.5-10.1) mg/dL Total Protein 5.0 L (6.4-8.2) g/dL BMP 12/13/17 08:10 Sodium 140 Potassium 3.8 D Chloride 103 Carbon Dioxide 29.4 BUN 36 H Creatinine 0.85 Calcium 7.3 L* <Mariam Rosen T - 12/14/17 09:30> Physical Exam Vital signs: Intake & Output 12/14/17 12/15/17 12/15/17 19:59 06:59 18:59 Other: # Incontinent Voids # Urine Diapers Date of Last Bowel Movement <Arturo Marcus - 12/15/17 13:38> Vital Signs 12/13/17 12:00 12/13/17 16:00 12/13/17 20:00 Temperature 97.5 F L 98.0 F 97.7 F Pulse Rate 65 61 61 Respiratory Rate 14 14 16 Blood Pressure 153/80 H 153/74 H 140/75 Pulse Oximetry 98 98 98 12/14/17 00:00 12/14/17 01:00 12/14/17 02:02 Temperature 97.5 F L Pulse Rate 60 Respiratory Rate 16 18 Blood Pressure 173/94 H 173/84 H Pulse Oximetry 97 12/14/17 04:00 12/14/17 08:00 12/14/17 09:17 Temperature 97.6 F 97.2 F L Pulse Rate 59 L 58 L 62 Respiratory Rate 16 16 18 Blood Pressure 142/75 H 144/81 H Pulse Oximetry 98 96 93 L Intake & Output 12/13/17 12/14/17 12/14/17 18:59 06:59 18:59 Intake Total 1320 / 1320 Output Total 150 / 150 226 / 226 Balance 1170 / 1170 -226 / -226 Weight 58.3 kg Intake: Oral 1320 / 1320 Output: Urine 150 / 150 226 / 226 Other: # Voids 4 1 # Incontinent Voids 6 1 1 # Urine Diapers 1 Date of Last Bowel Movement 12/10/17 12/14/17 # Bowel Movements 2 1 # Incontinent Bowel Movements 4 <Mariam Rosen T - 12/14/17 09:55> Narrative: General: Sitting up in bed, pleasant and in no acute distress HEENT: Normocephalic, no conjunctivitis, no nasal discharge Neck: Supple CV: Regular rate and rhythm today, 2 out of 6 holosystolic murmur Lungs: Slight wheezing Abdomen: Soft, nontender, nondistended, normal bowel sounds Ext: Able to lift both legs against gravity plus mild extra resistance, atrophy of of lower extremity muscles, sensation is in tact. Significant arthritis of both hands with associated bony deformities. Neuro: Awake, alert, oriented, <Mariam Rosen - 12/14/17 09:55> Assessment and Plan - Assessment (1) Spinal stenosis of lumbar region Code(s): M48.061 - Spinal stenosis, lumbar region without neurogenic claudication Status: Chronic (2) Diabetes Code(s): E11.9 - Type 2 diabetes mellitus without complications Status: Acute (3) A-fib Code(s): I48.91 - Unspecified atrial fibrillation Status: Acute (4) HTN (hypertension) Code(s): I10 - Essential (primary) hypertension Status: Acute (5) Hyperlipidemia Code(s): E78.5 - Hyperlipidemia, unspecified Status: Chronic (6) COPD (chronic obstructive pulmonary disease) Code(s): J44.9 - Chronic obstructive pulmonary disease, unspecified Status: Acute (7) GERD (gastroesophageal reflux disease) Code(s): K21.9 - Gastro-esophageal reflux disease without esophagitis Status: Acute (8) Nutrition, metabolism, and development symptoms Code(s): R63.8 - Other symptoms and signs concerning food and fluid intake Status: Acute <Arturo Marcus - 12/15/17 13:38> (1) Spinal stenosis of lumbar region Code(s): M48.061 - Spinal stenosis, lumbar region without neurogenic claudication Status: Chronic Plan: 77-year-old male with history of A.fib, hypertension, type 2 diabetes, COPD, CHF , rheumatoid arthritis, severe spinal stenosis sent to the ED from assisted living by for worsening lower extremity weakness and inability to ambulate. Now S/P day 2 after laminectomy L2-L3. Hgb and electrolytes, vital signs normal after surgery. - Neurosurgery on board - Patient has been accepted at [facility] - Pain management: oxycodone 10 mg q12hrs scheduled, Percocet 5/325 1 tab q4hrs pain 1-5, Percocet 5/325 2 tabs q4hrs pain 6 to 10, orphenadrine 100 mg bid for muscle spasms (2) Diabetes Code(s): E11.9 - Type 2 diabetes mellitus without complications Status: Acute Plan: Held home metformin and Humalog Accu-Cheks Hypoglycemia protocol in place Low-dose sliding scale Blood sugars ranging from 101-286 over the past 24 hours (3) A-fib Code(s): I48.91 - Unspecified atrial fibrillation Status: Acute Plan: Continue home amiodarone 200 mg daily and metoprolol Patient is not on anticoagulation at home, will discuss with family (4) HTN (hypertension) Code(s): I10 - Essential (primary) hypertension Status: Acute Plan: Continue home Entresto (5) Hyperlipidemia Code(s): E78.5 - Hyperlipidemia, unspecified Status: Acute Plan: Continue home atorvastatin (6) COPD (chronic obstructive pulmonary disease) Code(s): J44.9 - Chronic obstructive pulmonary disease, unspecified Status: Acute Plan: Duoneb as needed Continue home symbicort and prednisone (7) GERD (gastroesophageal reflux disease) Code(s): K21.9 - Gastro-esophageal reflux disease without esophagitis Status: Acute Plan: Continue home protonix (8) Nutrition, metabolism, and development symptoms Code(s): R63.8 - Other symptoms and signs concerning food and fluid intake Status: Acute Plan: Fluids: PO Diet: diabetic diet vitals q4h, cardiac telemetry, monitor I & Os DVT ppx: SCDs <Mariam Rosen - 12/14/17 09:50> - Attending Attestation The exam, history, and the medical decision-making described in the above note were completed with the assistance of the resident physician. I reviewed and agree with the findings presented. I attest that I had a [id number] encounter with the patient on the same day alongside the resident. Patient will go to [facility] today. <Arturo Marcus - 12/15/17 13:38> <Mariam Rosen - Last Filed: 12/14/17 09:50> (1) Spinal stenosis of lumbar region Qualifiers: Neurogenic claudication status: with neurogenic claudication Qualified Code(s ): M48.062 - Spinal stenosis, lumbar region with neurogenic claudication <Arturo Marcus - Last Filed: 12/15/17 13:38> (1) Spinal stenosis of lumbar region Qualifiers: (2) Diabetes Qualifiers: Diabetes mellitus type: type 2 (5) Hyperlipidemia Qualifiers: Hyperlipidemia type: mixed hyperlipidemia Qualified Code(s): E78.2 - Mixed hyperlipidemia <Mariam Rosen - Last Filed: 12/14/17 09:50> (1) Spinal stenosis of lumbar region Qualifiers: Neurogenic claudication status: with neurogenic claudication Qualified Code(s ): M48.062 - Spinal stenosis, lumbar region with neurogenic claudication <Arturo Marcus - Last Filed: 12/15/17 13:38> (1) Spinal stenosis of lumbar region Qualifiers: (2) Diabetes Qualifiers: Diabetes mellitus type: type 2 (5) Hyperlipidemia Qualifiers: Hyperlipidemia type: mixed hyperlipidemia Qualified Code(s): E78.2 - Mixed hyperlipidemia
--- NOTE | 2017-12-14 09:38 | P.PNNS ---
Subjective Interval history: No acute issues overnight. Has been using a bedside urinal successfully. Denies much pain. Physical Exam Vital signs: Vital Signs 12/13/17 12:00 12/13/17 16:00 12/13/17 20:00 Temperature 97.5 F L 98.0 F 97.7 F Pulse Rate 65 61 61 Respiratory Rate 14 14 16 Blood Pressure 153/80 H 153/74 H 140/75 Pulse Oximetry 98 98 98 12/14/17 00:00 12/14/17 01:00 12/14/17 02:02 Temperature 97.5 F L Pulse Rate 60 Respiratory Rate 16 18 Blood Pressure 173/94 H 173/84 H Pulse Oximetry 97 12/14/17 04:00 12/14/17 08:00 12/14/17 09:17 Temperature 97.6 F 97.2 F L Pulse Rate 59 L 58 L 62 Respiratory Rate 16 16 18 Blood Pressure 142/75 H 144/81 H Pulse Oximetry 98 96 93 L Intake & Output 12/13/17 12/14/17 12/14/17 18:59 06:59 18:59 Intake Total 1320 / 1320 Output Total 150 / 150 226 / 226 Balance 1170 / 1170 -226 / -226 Weight 58.3 kg Intake: Oral 1320 / 1320 Output: Urine 150 / 150 226 / 226 Other: # Voids 4 1 # Incontinent Voids 6 1 1 # Urine Diapers 1 Date of Last Bowel Movement 12/10/17 12/14/17 # Bowel Movements 2 1 # Incontinent Bowel Movements 4 - Routine Neurological Exam Awake, alert. Conversant, answers questions appropriately. Follows commands x4 , with baseline significant paraparesis. Assessment and Plan - Assessment (1) Paraparesis of both lower limbs Code(s): G82.20 - Paraplegia, unspecified Status: Chronic (2) Spinal stenosis of lumbar region Code(s): M48.061 - Spinal stenosis, lumbar region without neurogenic claudication Status: Chronic Qualifiers: Neurogenic claudication status: with neurogenic claudication Qualified Code (s): M48.062 - Spinal stenosis, lumbar region with neurogenic claudication (3) Unable to ambulate Code(s): R26.2 - Difficulty in walking, not elsewhere classified Status: Chronic - Plan A: 77-year-old gentleman with severe paraparesis near plegia for the past 2 months although symptoms have been ongoing for the past 6 months. He also has generalized atrophy involving the upper and lower extremities which is chronic related to steroid use and medications for his rheumatoid arthritis. The more recent finding is severe paraparesis in the lower extremities with an inability to stand or walk with a 1/5 movement although he denies incontinence and has sensation in his legs. He has a severe L2-3 spinal stenosis from combination of facet and ligamentum flavum hypertrophy along with a large disc herniation lesser degree of stenosis at L1-2 levels. S/p L2/L3 decompressive laminectomy with medical facetectomy and microdiscectomy on 12/12/17. P: Continue with rehab efforts. Bladder function seems to be improving, voiding spontaneously now Continue PT over the weekend as he seems to be improving and could possibly be a rehab candidate next week
[2017-12-14] MEDS: Budesonide-Formoterol 80/4.5 MCG 6.9 GM Inhaler INH SCH (10:00)
[2017-12-14] MEDS: Mirtazapine 15 MG Tablet PO SCH (10:01)
[2017-12-14] MEDS: predniSONE 5 MG Tablet PO SCH (10:02)
[2017-12-14] MEDS: Pantoprazole Sodium 20 MG DR Tablet PO SCH (10:03)
[2017-12-14] MEDS: Amiodarone 200 MG Tablet PO SCH (10:03)
[2017-12-14] MEDS: Metoprolol Tartrate 50 MG Tablet PO SCH (10:03)
[2017-12-14] MEDS: oxyCODONE 10 MG Controlled Release Tablet PO SCH (10:03)
[2017-12-14] MEDS: Sodium Chloride 0.9% 2 ML Flush BID IV.FLUSH SCH (10:04)
[2017-12-14] MEDS: Senna/Docusate Sodium 8.6/50 MG Tablet PO SCH (10:04)
[2017-12-14] MEDS ORDERED: Enoxaparin Inj 40 MG/0.4 ML Syringe SQ ONE (12:00)
[2017-12-15] MEDS ORDERED: Enoxaparin Inj 40 MG/0.4 ML Syringe SQ SCH (09:00)
== END 2017-12-14 14:29 ==
LOC: NEPE 09:39 → NEDA 10:40 → N05 12:30
PROVIDERS: ADMIT Family Medicine; ATTEND Family Medicine